=== PATIENT | female | born 1980 | race Hispanic/Latino ===

== ENCOUNTER 2022-03-29 19:53 | Inpatient (IN) | payer OTHER ==
[2022-03-29] MEDS ORDERED: PANTOPRAZOLE 40 MG INJ ONE (20:10)
[2022-03-29] MEDS ORDERED: ONDANSETRON 4 MG/2 ML VIAL ONE (20:10)
[2022-03-29] MEDS ORDERED: NA CHLORIDE 0.9% 1,000 ML ONE ×2 (20:11→21:35)
[2022-03-29] MEDS ORDERED: NA CHLORIDE 0.9% 250 ML ONE (20:11)
[2022-03-29 20:25] LABS: Hematocrit 39.4 % (36.0-45.0); Lymphocytes % 6.3 % (15.3-44.8); MPV 9.2 fL (7.6-11.3)
[2022-03-29 20:26] LABS: Protime INR 0.9
[2022-03-29 20:37] LABS: SARS-CoV-2 Antigen Rapid Res Negative (Negative)
[2022-03-29 20:46] LABS: ALT/SGPT 20 U/L (12-78); AST/SGOT 9 U/L (15-37); Albumin 3.7 g/dL (3.4-5.0); Alkaline Phosphatase 139 U/L (45-117); BUN Blood Urea Nitrogen 18 mg/dL (7-18); Bicarbonate 20 mmol/L (21-32); Bilirubin Total 0.5 mg/dL (0.2-1.0); Glomerular Filtration Rate 52 ml/min (=/>90); Potassium 3.7 mmol/L (3.5-5.1); Sodium Level 135 mmol/L (136-145); Troponin High Sensitivity < 3.0 pg/mL (<58.9)
[2022-03-29 20:47] LABS: Glucose Level 423 mg/dL (74-106)
--- NOTE | 2022-03-29 21:07 | ER ---
Nurse's Notes [facility] Name: Theresa Hoffmann Age: 41 yrs Sex: Female : 1980 Arrival Date: 03/29/2022 Time: 19:55 Bed 4 Private MD: Diagnosis: DKA, UPPER GI BLEED, GASTRITIS Presentation: 03/29 20:14 Chief complaint: EMS states: Pt called us for rasing heart rate and vomiting. Upon EMS jb4 arrival, pt was having bright red emesis which transitioned to a dark coffee ground like emesis. Pt has had a kidney transplant in [place], history of DKA, was given 4mg of zofran IM. Coronavirus screen: At this time, the client does not indicate any symptoms associated with coronavirus-19. Ebola Screen: No symptoms or risks identified at this time. Initial Sepsis Screen: Does the patient meet any 2 criteria? RR > 20 per min. No. Patient's initial sepsis screen is negative. Does the patient have a suspected source of infection? No. Patient's initial sepsis screen is negative. Risk Assessment: Do you want to hurt yourself or someone else? Patient reports no desire to harm self or others. Onset of symptoms was March 29, 2022. Transition of care: patient was not received from another setting of care. 20:14 Method Of Arrival: EMS: [facility] 20:14 Acuity: THANG 2 jb4 Historical: - Allergies: 20:21 Bactrim; jb4 - PMHx: 20:21 DM; jb4 - PSHx: 20:21 Kidney transplant; jb4 - Immunization history:: Adult Immunizations up to date. - Social history:: Smoking status: unknown. Screenin:06 Abuse screen: Denies threats or abuse. Denies injuries from another. Nutritional ha1 screening: No deficits noted. Tuberculosis screening: No symptoms or risk factors identified. 22:25 Fall Risk None identified. jb4 Assessment: 20:15 General: Appears in no apparent distress. uncomfortable, ill, Behavior is cooperative, jb4 anxious. Pain: Complains of pain in chest Pain does not radiate. Pain currently is 8 out of 10 on a pain scale. Quality of pain is described as burning. Neuro: Level of Consciousness is awake, alert, obeys commands, Oriented to person, place, time, situation. Cardiovascular: Patient's skin is warm and dry. Respiratory: Airway is patent Respiratory effort is even, unlabored, Respiratory pattern is symmetrical, tachypnea. GI: Abdomen is flat, non-distended, Pt is actively vomiting bright red blood, Coffee ground emesis. : No signs and/or symptoms were reported regarding the genitourinary system. EENT: No signs and/or symptoms were reported regarding the EENT system. Derm: Skin is intact, Skin is dry, Skin is pale, Skin temperature is warm. 21:04 Reassessment: Patient and/or family updated on plan of care and expected duration. Pain ha1 level reassessed. Patient is alert, oriented x 3, equal unlabored respirations, skin warm/dry/pink. pt. reports feeling nauseous . 21:52 Reassessment: Patient appears in no apparent distress at this time. Patient and/or jb4 family updated on plan of care and expected duration. Pain level reassessed. Patient is alert, oriented x 3, equal unlabored respirations, skin warm/dry/pink. 22:25 Reassessment: Patient appears in no apparent distress at this time. Patient and/or jb4 family updated on plan of care and expected duration. Pain level reassessed. Patient is alert, oriented x 3, equal unlabored respirations, skin warm/dry/pink. Patient states feeling better. Patient states symptoms have improved. Vital Signs: 20:14 BP 171 / 103; Pulse 80; Resp 26; Temp 97.8(O); Pulse Ox 100% on R/A; Weight 58.51 kg 4 (R); Height 5 ft. 1 in. (154.94 cm) (R); 20:30 BP 173 / 98; Pulse 84; Resp 20; Pulse Ox 98% on R/A; jb4 21:05 BP 171 / 105; Pulse 86; Resp 20; Pulse Ox 97% on R/A; ha1 21:30 BP 157 / 108; Pulse 88; Resp 20; Pulse Ox 98% on R/A; jb4 22:25 BP 155 / 109; Pulse 90; Resp 14; Pulse Ox 99% on R/A; jb4 20:14 Body Mass Index 24.37 (58.51 kg, 154.94 cm) [facility] ED Course: 19:55 Patient arrived in ED. mw2 19:55 Irene Perez MD is Attending Physician. sp3 20:08 Arnoldo Marie, KARLY is Primary Nurse. jb4 20:21 Triage completed. jb4 20:21 Arm band placed on right wrist. jb4 20:21 Patient has correct armband on for positive identification. Bed in low position. Call jb4 light in reach. Side rails up X 1. Client placed on continuous cardiac and pulse oximetry monitoring. NIBP monitoring applied. security monitor on. 20:46 XRAY Chest (1 view) In Process Unspecified. EDMS 21:06 Chris Pike MD is Hospitalizing Provider. sp3 21:32 CT Abd/Pelvis - Without Contrast In Process Unspecified. EDMS 22:41 No provider procedures requiring assistance completed. Patient admitted, IV remains in ha1 place. Administered Medications: 20:00 Drug: NS 0.9% 1000 ml Route: IV; Rate: 1 bolus; Site: right upper arm; kl 21:00 Follow up: Response: No adverse reaction; IV Status: Completed infusion; IV Intake: jb4 1000ml 20:05 Drug: ProTONIX (pantoprazole) 80 mg Route: IVP; Site: right upper arm; kl 20:30 Follow up: Response: No adverse reaction jb4 20:09 Drug: Zofran (Ondansetron) 4 mg Route: IVP; Site: right upper arm; kl 20:30 Follow up: Response: No adverse reaction; Marked relief of symptoms jb4 20:17 Drug: ProTONIX (pantoprazole) 8 mg/hr Route: IV; Rate: 25 ml/hr; Site: right upper arm; kl 22:44 Follow up: Response: No adverse reaction; IV Status: Infusion continued upon admission jb4 21:25 Drug: Phenergan (promethazine) 12.5 mg Route: IVP; Site: right upper arm; jb4 22:44 Follow up: Response: No adverse reaction; Marked relief of symptoms jb4 21:45 Drug: NS 0.9% 1000 ml Route: IV; Rate: 1 bolus; Site: right upper arm; jb4 22:43 Follow up: Response: No adverse reaction; IV Status: Completed infusion; IV Intake: jb4 1000ml 22:25 Drug: Insulin Drip - (Insulin Regular Human 100 units, NS 0.9% 100 ml) {Co-Signature: [email or web address] ha1 (Ashwini Mc RN).} Route: IV; Rate: calculated rate; Site: left upper arm; 22:44 Follow up: Response: No adverse reaction; IV Status: Infusion continued upon admission jb4 Medication: 22:25 VIS not applicable for this client. jb4 Point of Care Testing: Blood Glucose: 20:22 Blood Glucose: 438 mg/dL; jb4 Ranges: Intake: 21:00 IV: 1000ml; Total: 1000ml. jb4 22:43 IV: 1000ml; Total: 2000ml. jb4 Outcome: 21:06 Decision to Hospitalize by Provider. sp3 22:41 Admitted to ICU accompanied by nurse, via stretcher, room 3, Report called to hung Valdez RN 22:41 Condition: stable 22:41 Discharge instructions given to patient, family, Instructed on the need for admit, Demonstrated understanding of instructions. 22:44 Patient left the ED. ha1 Signatures: Dispatcher [employer] EDMS Piper Dorsey RN RN kl Bryson, James, RN RN jb4 Lisa Zamudio 2 Irene Perez MD MD sp3 Elizabeth Lazar RN RN kd3 Ashwini Mc RN RN ha1 Ashwini Mc RN ha1
--- NOTE | 2022-03-29 21:07 | EDPHYS ---
Physician Documentation [facility] Name: Theresa Hoffmann Age: 41 yrs Sex: Female : 1980 Arrival Date: 03/29/2022 Time: 19:55 Bed 4 Private MD: ED Physician Irene Perez HPI: 03/29 20:13 This 41 yrs old Female presents to ER via Unassigned with complaints of sp3 Nausea/Vomiting. 20:13 49-year-old female with a history of diabetes and kidney transplant presents to the ED sp3 via EMS for generalized weakness and emesis involving bright red blood as well as coffee-ground's which started today. Patient states that she has been progressively feeling weak over the last 3 to 4 days which culminated in today's emesis. She denies fever, lower abdominal pain, shortness of breath, rash, known sick contacts, URI symptoms, prior GI bleed, being on any blood thinners, recreational drug use, changes in any of her medications. Her transplant was in [place] several years ago. Denies diarrhea or melena or dark stools. No bleeding from any other sites including gums and nose.. Historical: - Allergies: 20:21 Bactrim; jb4 - PMHx: 20:21 DM; jb4 - PSHx: 20:21 Kidney transplant; jb4 - Immunization history:: Adult Immunizations up to date. - Social history:: Smoking status: unknown. ROS: 20:14 Constitutional: Negative for fever, chills, and weight loss, Eyes: Negative for injury, sp3 pain, redness, and discharge, ENT: Negative for injury, pain, and discharge, Neck: Negative for injury, pain, and swelling, Respiratory: Negative for shortness of breath, cough, wheezing, and pleuritic chest pain, Back: Negative for injury and pain, Skin: Negative for injury, rash, and discoloration, Neuro: Negative for headache, weakness, numbness, tingling, and seizure, Psych: Negative for depression, anxiety, suicide ideation, homicidal ideation, and hallucinations, Allergy/Immunology: Negative for hives, rash, and allergies, Endocrine: Negative for neck swelling, polydipsia, polyuria, polyphagia, and marked weight changes. 20:14 All other systems are negative. Exam: 20:15 Head/Face: Normocephalic, atraumatic. Eyes: Pupils equal round and reactive to light, sp3 extra-ocular motions intact. Lids and lashes normal. Conjunctiva and sclera are non-icteric and not injected. Cornea within normal limits. Periorbital areas with no swelling, redness, or edema. ENT: Nares patent. No nasal discharge, no septal abnormalities noted. External auditory canals are clear. Oropharynx with no redness, swelling, or masses, exudates, or evidence of obstruction, uvula midline. Mucous membranes moist. Neck: Trachea midline, no thyromegaly or masses palpated, and no cervical lymphadenopathy. Supple, full range of motion without nuchal rigidity, or vertebral point tenderness. No Meningismus. Chest/axilla: Normal chest wall appearance and motion. Nontender with no deformity. No lesions are appreciated. Cardiovascular: Regular rate and rhythm with a normal S1 and S2. No gallops, murmurs, or rubs. Normal PMI, no JVD. No pulse deficits. Respiratory: Lungs have equal breath sounds bilaterally, clear to auscultation and percussion. No rales, rhonchi or wheezes noted. No increased work of breathing, no retractions or nasal flaring. Back: No spinal tenderness. No costovertebral tenderness. Full range of motion. MS/ Extremity: Pulses equal, no cyanosis. Neurovascular intact. Full, normal range of motion. Neuro: Awake and alert, GCS 15, oriented to person, place, time, and situation. Cranial nerves II-XII grossly intact. Motor strength 5/5 in all extremities. Sensory grossly intact. Cerebellar exam normal. Normal gait. Psych: Awake, alert, with orientation to person, place and time. Behavior, mood, and affect are within normal limits. 20:15 Constitutional: The patient appears alert, frail, obviously ill, unkempt. 20:15 ECG was reviewed by the Attending Physician. EKG demonstrates normal sinus rhythm at 87 bpm with normal intervals, mildly leftward axis, normal QRS except for poor R wave progression V1 through V3, nonspecific diffuse ST/T changes without evidence of acute ischemia or ST elevation UT. 20:15 Abdomen/GI: He has tenderness to palpation epigastrically without peritoneal signs.. 20:15 Skin: Appearance: Color: pale. Vital Signs: 20:14 BP 171 / 103; Pulse 80; Resp 26; Temp 97.8(O); Pulse Ox 100% on R/A; Weight 58.51 kg jb4 (R); Height 5 ft. 1 in. (154.94 cm) (R); 20:30 BP 173 / 98; Pulse 84; Resp 20; Pulse Ox 98% on R/A; jb4 21:05 BP 171 / 105; Pulse 86; Resp 20; Pulse Ox 97% on R/A; ha1 21:30 BP 157 / 108; Pulse 88; Resp 20; Pulse Ox 98% on R/A; jb4 22:25 BP 155 / 109; Pulse 90; Resp 14; Pulse Ox 99% on R/A; jb4 20:14 Body Mass Index 24.37 (58.51 kg, 154.94 cm) jb4 Procedures: 20:05 Peripheral line: by aseptic technique a peripheral line was placed in the right Upper la1 arm 18G 10cm Midline inserted VIA dynamic US guidance. verified with visualization, blood return, flushes easily. . MDM: 19:55 Patient medically screened. sp3 20:19 Data reviewed: vital signs, nurses notes. ED course: 41-year-old female diabetic status sp3 post kidney transplant here with dehydration, likely upper GI bleed, and possible DKA. Will obtain laboratory values, CT scan of the abdomen and pelvis, chest x-ray, EKG and we have started Protonix IV drip plus bolus and Zofran. Type and screen drawn in case patient needs transfusion. Vital signs are normal however patient's condition is extremely guarded. Ultimate disposition and place of admission to be determined after work-up is complete and patient is fully assessed. We do have GI coverage on-call today so ICU admission here is a possibility.. 03/29 19:58 Order name: CBC with Diff; Complete Time: 20:29 3 03/29 19:58 Order name: Troponin HS; Complete Time: 21:03 3 03/29 19:58 Order name: CMP; Complete Time: 21:03 3 03/29 19:58 Order name: PT-INR; Complete Time: 20:29 3 03/29 19:58 Order name: Type And Screen; Complete Time: 21:32 3 03/29 19:58 Order name: Lactate; Complete Time: 21:03 3 03/29 19:58 Order name: XRAY Chest (1 view); Complete Time: 21:49 sp3 03/29 19:58 Order name: Test, Serum; Complete Time: 20:39 sp3 03/29 20:07 Order name: SARS RAPID; Complete Time: 20:39 la1 03/29 20:10 Order name: CT Abd/Pelvis - Without Contrast; Complete Time: 21:49 sp3 03/29 20:18 Order name: Glucose, Ancillary Testing; Complete Time: 20:29 EDMS 03/29 22:19 Order name: Glucose, Ancillary Testing; Complete Time: 22:49 EDMS 03/29 19:58 Order name: EKG; Complete Time: 19:59 sp3 03/29 19:58 Order name: Cardiac monitoring; Complete Time: 20:30 sp3 03/29 19:58 Order name: EKG - Nurse/Tech; Complete Time: 20:30 sp3 03/29 19:58 Order name: IV Saline Lock; Complete Time: 20:30 sp3 03/29 19:58 Order name: Labs collected and sent; Complete Time: 20:30 sp3 03/29 19:58 Order name: O2 Per Protocol; Complete Time: 20:30 sp3 03/29 19:58 Order name: O2 Sat Monitoring; Complete Time: 20:30 sp3 03/29 19:58 Order name: NPO; Complete Time: 20:30 sp3 Administered Medications: 20:00 Drug: NS 0.9% 1000 ml Route: IV; Rate: 1 bolus; Site: right upper arm; kl 21:00 Follow up: Response: No adverse reaction; IV Status: Completed infusion; IV Intake: jb4 1000ml 20:05 Drug: ProTONIX (pantoprazole) 80 mg Route: IVP; Site: right upper arm; kl 20:30 Follow up: Response: No adverse reaction jb4 20:09 Drug: Zofran (Ondansetron) 4 mg Route: IVP; Site: right upper arm; kl 20:30 Follow up: Response: No adverse reaction; Marked relief of symptoms jb4 20:17 Drug: ProTONIX (pantoprazole) 8 mg/hr Route: IV; Rate: 25 ml/hr; Site: right upper arm; kl 22:44 Follow up: Response: No adverse reaction; IV Status: Infusion continued upon admission jb4 21:25 Drug: Phenergan (promethazine) 12.5 mg Route: IVP; Site: right upper arm; jb4 22:44 Follow up: Response: No adverse reaction; Marked relief of symptoms jb4 21:45 Drug: NS 0.9% 1000 ml Route: IV; Rate: 1 bolus; Site: right upper arm; jb4 22:43 Follow up: Response: No adverse reaction; IV Status: Completed infusion; IV Intake: jb4 1000ml 22:25 Drug: Insulin Drip - (Insulin Regular Human 100 units, NS 0.9% 100 ml) {Co-Signature: [email or web address] ha1 (Ashwini Mc RN).} Route: IV; Rate: calculated rate; Site: left upper arm; 22:44 Follow up: Response: No adverse reaction; IV Status: Infusion continued upon admission jb4 Point of Care Testing: Blood Glucose: 20:22 Blood Glucose: 438 mg/dL; jb4 Ranges: Critical Glucose Levels:Adult <50 mg/dl or >400 mg/dl <40 mg/dl or >180 mg/dl Disposition Summary: 03/29/22 21:06 Hospitalization Ordered Hospitalization Status: Inpatient Admission sp3 Provider: Chris Pike sp3 Location: Intensive Care Unit sp3 Condition: Critical sp3 Problem: an acute exacerbation sp3 Symptoms: have worsened sp3 Bed/Room Type: Standard sp3 Room Assignment: 3-(03/29/22 22:00) Diagnosis - DKA, UPPER GI BLEED, GASTRITIS sp3 Forms: - Medication Reconciliation Form sp3 - SBAR form sp3 Critical care time excluding procedures: 21:04 Critical care time: Bedside Care: 15 minutes, Consultation: 15 minutes. Total time: 30 sp3 minutes Signatures: Dispatcher [employer] Piper Cunningham RN RN Troy Conrad, PAINTER AND PAPERHANGER APPRENTICE-C PAINTER AND PAPERHANGER APPRENTICE-Cla1 Arnoldo Marie RN RN jb4 Irene Perez MD MD sp3 Elizabeth Lazar RN RN kd3 Ashwini Mc RN ha1 Corrections: (The following items were deleted from the chart) 22:00 21:06 sp3 anderson
[2022-03-29] MEDS ORDERED: PROMETHAZINE INJ 25 MG/ML AMP ONE (21:19)
[2022-03-29] MEDS ORDERED: INSULIN -REGULAR HUMAN 50 UNIT/0.5 ML ML ONE (21:34)
[2022-03-29] MEDS ORDERED: NA CHLORIDE 0.9% 100 ML ONE (21:35)
--- NOTE | 2022-03-29 21:41 | RAD REPORT ---
EXAM DESCRIPTION: CT - Abdomen Pelvis Wo Contrast - 03/29/2022 9:30 pm CLINICAL HISTORY: Abdominal pain COMPARISON: 2010 TECHNIQUE: Computed axial tomography of the abdomen and pelvis was obtained. IV and oral contrast we re not requested. All CT scans are performed using dose optimization technique as appropriate and may include automated exposure control or mA/KV adjustment according to patient size. FINDINGS: The evaluation of solid organs, vessels and bowel is limited secondary to the lack of con trast administration. Small to moderate hiatal hernia Post surgical changes involve small bowel. Small jamul kidneys. Transplant kidney left pelvis. No hydronephrosis. Liver, spleen, pancreas and adrenals grossly normal. No evidence diverticulitis. No adnexal mass IMPRESSION: No acute abnormality is displayed.
--- NOTE | 2022-03-29 21:41 | RAD REPORT ---
EXAM DESCRIPTION: [place] Single View03/29/2022 8:44 pm CLINICAL HISTORY: Chest pain COMPARISON: 2014 FINDINGS: The lungs appear clear of acute infiltrate. The heart is normal size IMPRESSION: No acute abnormalities displayed
--- NOTE | 2022-03-29 21:48 | P.HP ---
Certification for Inpatient Patient admitted to: Inpatient With expected LOS: >2 Midnights Patient will require the following post-hospital care: None Practitioner: I am a practitioner with admitting privileges, knowledge of patient current condition, hospital course, and medical plan of care. Services: Services provided to patient in accordance with Admission requirements found in Title 42 Section 412.3 of the Code of Federal Regulations <Troy Lisa - Last Filed: 03/29/22 21:49> Patient History Date of Service: 03/29/22 Reason for admission: DKA, hematemesis History of Present Illness: 41-year-old female with history of diabetes most type IIinsulin-dependent, history of renal transplant in 2018 in [facility] presented emerged department with nausea and vomiting. She reports feeling unwell throughout the day today. She vomited a few times with EMS and upon arrival to the emergency department. Had some coffee-ground emesis present in her vomitus. She evaluated in the emergency department her labs were significant for leukocytosis with white blood cell count 15.2 sodium 135 chloride 96 CO2 20 anion gap 20.7 creatinine 1.33 EGFR 52 glucose 123 lactic acid 5.1. Patient denies any fever, chills, dysuria, cough or other signs of infection. She was started on Protonix drip on arrival to emergency department given her coffee-ground emesis, also started on insulin drip given her DKA. She will be given to the ICU for further evaluation and monitoring of DKA, hematemesis. Patient reports her was performed in 2018 in the [facility] with recent complications, she reports she has been compliant with her antirejection medications although she cannot really recall the names or doses. We will admit to the ICU for further evaluation and management. - Past Medical/Surgical History Diabetic: Yes -: DMII insulin dependent -: HTN -: Hypothyroidism -: Renal transplant 2018 -: Renal transplant 2018-[facility] Psychosocial/ Personal History: Lives at home, alone. Unemployed. - Family History Mother -: Diabetes - Social History Smoking Status: Never smoker Alcohol use: Yes CD- Drugs: No Caffeine use: Yes Place of Residence: Home <Troy Lisa - Last Filed: 03/29/22 21:49> Date of Service: 03/30/22 <Chris Pike - Last Filed: 03/30/22 23:01> Allergies meperidine HCl [From Demerol] Allergy (Intermediate, Verified 01/21/14 23:42) Hives sulfamethoxazole [From Bactrim] Allergy (Intermediate, Verified 01/21/14 23:42) Hives trimethoprim [From Bactrim] Allergy (Intermediate, Verified 01/21/14 23:42) Hives hydrocodone Adverse Reaction (Verified 01/21/14 23:42) Nausea/Vomiting metoclopramide [From Reglan] Adverse Reaction (Verified 03/30/22 09:49) tardive Home Medications: Insulin Aspart [Novolog*] See Protocol SQ AC 01/21/14 Insulin Glargine Human [Lantus*] 20 units SQ DAILY 01/21/14 Acetam/Caff/Butal [Fioricet*] 1 tab PO Q12H PRN #30 tab 01/23/14 Atorvastatin Calcium 10 mg PO DAILY 03/30/22 Carisoprodol [Soma] 700 mg PO BID PRN 03/30/22 Cetirizine HCl [Zyrtec] 10 mg PO DAILY PRN 03/30/22 Gabapentin 100 mg PO BID 03/30/22 Levothyroxine [Synthroid] 125 mcg PO [id number] 03/30/22 Mirtazapine [Remeron] 15 mg PO BEDTIME PRN 03/30/22 Mycophenolate Sodium [Mycophenolic Acid] 360 mg PO BID 03/30/22 Nitrofurantoin Monohyd/M-Cryst [Nitrofurantoin Yell-Mcr 100 mg] 100 mg PO BID 03/30/22 Pantoprazole Sodium [Protonix] 40 mg PO DAILY 03/30/22 Prednisone [Wili] 5 mg PO DAILY 03/30/22 Sumatriptan [Imitrex] 50 mg PO BID PRN 03/30/22 Tacrolimus 1 mg PO BEDTIME 03/30/22 Tacrolimus 2 mg PO BREAKFAST 03/30/22 levETIRAcetam [Keppra Tab] 500 mg PO BID 03/30/22 Review of Systems 10-point ROS is otherwise unremarkable General: Malaise Gastrointestinal: Nausea, Vomiting <Troy Lisa Mohit - Last Filed: 03/29/22 21:49> Physical Examination - Physical Exam General: Alert, In no apparent distress, Oriented x3 HEENT: Atraumatic, PERRLA, Mucous membr. moist/pink, EOMI, Sclerae nonicteric Neck: Supple, 2+ carotid pulse no bruit, No LAD, Without JVD or thyroid abnormality Respiratory: Clear to auscultation bilaterally, Normal air movement Cardiovascular: Regular rate/rhythm, Normal S1 S2 Capillary refill: <2 Seconds Gastrointestinal: Normal bowel sounds, No tenderness Musculoskeletal: No tenderness Integumentary: No rashes Neurological: Normal speech, Normal strength at 5/5 x4 extr, Normal tone, Normal affect - Studies Laboratory Data (last 24 hrs) 03/29/22 20:00: PT 9.9, INR 0.90 03/29/22 20:00: Sodium 135 L, Potassium 3.7, BUN 18, Creatinine 1.33 H, Glucose 423 H*, Total Bilirubin 0.5, AST 9 L, ALT 20, Alkaline Phosphatase 139 H 03/29/22 20:00: WBC 15.20 H, Hgb 12.3, Hct 39.4, Plt Count 329 <Troy Lias - Last Filed: 03/29/22 21:49> Assessment and Plan - Plan Assessment: Diabetes mellitus type IIinsulin-dependent with DKA Hematemesis History of renal transplant 2018 Plan: Diabetes mellitus type IIinsulin-dependent with DKA: N.p.o., aggressive IV fluids, hourly Accu-Chek, every 4 hour BMP, Insulin drip. Pt also with mild amount of hematemesis, will keep NPO for now. Hematemesis: Pt reports hx of gastric ulcers, keep NPO, repeat H/H tonight, continue protonix drip, GI to be consulted. History of renal transplant 2018: Continue IVF, CT without contrast without hydronephrosis. Nephrology to be consulted. DVT PPX: SCD Code status:Full Discharge Plan: Home Plan to discharge in: 48 Hours - Advance Directives Does patient have a Living Will: No Does patient have a Durable POA for Healthcare: No - Code Status/Comfort Care Code Status Assessed: Yes (Full code) Critical Care: No Time Spent Managing Pts Care (In Minutes): 70 <Troy Lisa - Last Filed: 03/29/22 21:49> Physician Review: Patient Assessed, Agree with Above Assessment and Plan <Chris Pike - Last Filed: 03/30/22 23:01>
[2022-03-29] MEDS ORDERED: PANTOPRAZOLE INJ 80 MG in NA CHLORIDE 0.9% 250 ML IV SCH (23:18)
[2022-03-29] MEDS ORDERED: NACHLORIDE 0.45% 1,000 ML with POTASSIUM CL 20 MEQ IV SCH ×2 (23:18)
[2022-03-29] MEDS ORDERED: D5.45NS W/KCL 20MEQ 1,000 ML IV SCH (23:18)
[2022-03-29] MEDS ORDERED: INSULIN -REGULAR HUMAN 100 UNIT in NA CHLORIDE 0.9% 100 ML IV SCH (23:18)
[2022-03-29] MEDS: POTASSIUM CHLORIDE-0.45% NACL 20 MEQ/1,000 ML BAG IV SCH (23:30)
[2022-03-29 23:46] LABS: Hematocrit 35.1 % (36.0-45.0)
[2022-03-29 23:51] VITALS: O2SAT 100; BMI 24.0
[2022-03-30] MEDS: ONDANSETRON 4 MG/2 ML VIAL IV PRN ×3 (01:19→13:26)
[2022-03-30 01:38] LABS: Potassium 3.7 mmol/L (3.5-5.1)
[2022-03-30] MEDS: PROMETHAZINE INJ 25 MG/ML AMP IV PRN ×5 (02:36→20:30)
[2022-03-30] MEDS ORDERED: D5.45NS W/KCL 20MEQ 20 MEQ/1,000 ML BAG IV SCH (05:00)
[2022-03-30 05:48] LABS: Hematocrit 34.2 % (36.0-45.0); Lymphocytes % 9.6 % (15.3-44.8); MCV 80.3 fL (80-100); MPV 8.6 fL (7.6-11.3); RBC Red Blood Cell Count 4.26 M/uL (3.86-4.86)
[2022-03-30] MEDS: POTASSIUM CHLORIDE-0.45% NACL 20 MEQ/1,000 ML BAG IV SCH (06:10)
[2022-03-30 06:13] LABS: BUN Blood Urea Nitrogen 10 mg/dL (7-18); Bicarbonate 24 mmol/L (21-32); Glomerular Filtration Rate 86 ml/min (=/>90); Glucose Level 230 mg/dL (74-106); HDL Cholesterol 89 mg/dL (40-60); LDL Cholesterol, Calculated 80 mg/dL (<130); Magnesium 1.5 mg/dL (1.8-2.4); Potassium 3.8 mmol/L (3.5-5.1); Sodium Level 137 mmol/L (136-145)
[2022-03-30] MEDS: PANTOPRAZOLE INJ 80 MG in NA CHLORIDE 0.9% 250 ML IV SCH ×2 (07:24→17:20)
--- NOTE | 2022-03-30 08:28 | EKG ---
Test Date: 2022-03-29 Test Time: 20:14:01 Glass Loading Equipment Tender: MARIA TERESA MEASUREMENT RESULTS: Intervals: Rate: 87 AL: 146 QRSD: 76 QT: 382 QTc: 459 [place]: P: 54 AL: 146 QRS: 2 T: 52 INTERPRETIVE STATEMENTS: Normal sinus rhythm Nonspecific T wave abnormality Abnormal ECG Compared to ECG 08/18/2014 07:35:38 T-wave abnormality now present Electronically Signed On 03-30-22 08:26:34 CDT by Rick Hayes
[2022-03-30 09:35] LABS: Potassium 3.5 mmol/L (3.5-5.1)
[2022-03-30] MEDS ORDERED: METOCLOPRAMIDE 10 MG/2mL INJ IV SCH (10:00)
--- NOTE | 2022-03-30 11:10 | P.CNS ---
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 She reports CKD V/ESRD prior to renal transplanation but has done well with renal allograft and reports continud follow up with transplant team and compliance with anti rejection medication. She presented yesterday to the ER with nausea and vomiting. She reports feeling unwell throughout the day today. She vomited a few times with EMS and upon arrival to the emergency department. There are some reports of possible coffee ground emesis, GI has been consulted. She was also treated for DKA on admission and remains on IVF and low rate insulin drip. Allergies meperidine HCl [From Demerol] Allergy (Intermediate, Verified 01/21/14 23:42) Hives sulfamethoxazole [From Bactrim] Allergy (Intermediate, Verified 01/21/14 23:42) Hives trimethoprim [From Bactrim] Allergy (Intermediate, Verified 01/21/14 23:42) Hives hydrocodone Adverse Reaction (Verified 01/21/14 23:42) Nausea/Vomiting metoclopramide [From Reglan] Adverse Reaction (Verified 03/30/22 09:49) tardive Home Medications: Buspirone HCl [Buspar] 15 mg PO DAILY 01/21/14 Divalproex Sodium 500 mg PO BID 01/21/14 Insulin Aspart [Novolog*] 6 units SQ AC 01/21/14 Insulin Glargine Human [Lantus*] 16 units SQ DAILY 01/21/14 Levothyroxine Sodium 150 mcg PO DAILY 01/21/14 Mv-Mn/Iron/FA/Herbal/Digestive [ One Tablet] 1 tab PO DAILY 01/21/14 [place]-3 Fatty Acids/Fish Oil [Fish Oil 1,000 mg Softgel] 1,000 mg PO DAILY 01/21/14 Acetam/Caff/Butal [Fioricet*] 1 tab PO Q12H PRN #30 tab 01/23/14 Losartan Potassium [Cozaar*] 50 mg PO DAILY #30 tablet 01/23/14 - Past Medical/Surgical History Diabetic: Yes -: DMII insulin dependent -: HTN -: Hypothyroidism -: Renal transplant 2018 -: Renal transplant 2018-[facility] Psychosocial/ Personal History: Lives at home, alone. Unemployed. - Family History Mother Medical History: Diabetes - Social History Alcohol use: No CD- Drugs: No Caffeine use: No Place of Residence: Home Review of Systems General: Weakness, Malaise Eyes: Unremarkable ENT: Unremarkable Respiratory: Unremarkable Cardiovascular: Unremarkable Gastrointestinal: Nausea, Vomiting, Abdominal Pain Genitourinary: Unremarkable Musculoskeletal: Unremarkable Integumentary: Unremarkable Neurological: Unremarkable Physical Examination Temp Pulse Resp BP Pulse Ox 98.6 F 90 17 172/96 H 17 L 03/30/22 08:00 03/30/22 10:00 03/30/22 06:00 03/30/22 10:00 03/29/22 23:12 General: Alert, In no apparent distress, Oriented x3 HEENT: Atraumatic, Normocephalic, EOMI Neck: Supple Respiratory: Clear to auscultation bilaterally, Normal air movement Cardiovascular: No edema, Normal pulses, Regular rate/rhythm, Normal S1 S2 Gastrointestinal: Soft and benign, Non-distended Musculoskeletal: No swelling, No contractures Integumentary: No rashes, No breakdown Neurological: Normal speech, Normal tone, Normal affect Laboratory Data (last 24 hrs) 03/29/22 20:00: PT 9.9, INR 0.90 03/29/22 20:00: Sodium 135 L, Potassium 3.7, BUN 18, Creatinine 1.33 H, Glucose 423 H*, Total Bilirubin 0.5, AST 9 L, ALT 20, Alkaline Phosphatase 139 H 03/29/22 20:00: WBC 15.20 H, Hgb 12.3, Hct 39.4, Plt Count 329 Conclusions/Impression: 1. Stage 1 FELA on admission 2. S/p kidney transplant status 3. Nausea, vomiting unspecified 4. DKA on admission 5. Volume depletion unspecified 6. Accelerated HTN -Cr levels have promptly improved, normalized with IVF hydration. No reports of transplant CKD or allograft issues, no reports of rejection, CT scan imaging showed no parenchymal issues, [place] kidneys are small. -Will resume anti rejection regimen with tacrolimus, myfortic and prednisone. Medications are not on formulary so will have pt bring in home meds. -DKA management per primary team, no active N/V and BP now accelerated so will lower rate of maintenance IVF to 50 cc/hr. -Will check UA with microscopy to eval for any infection, active urinary sediment or proteinuria. Thank you for the referral, Joselito Lassiter MD, [facility]
[2022-03-30] MEDS: HYDRALAZINE HCL 20 MG/ML VIAL IV PRN (13:15)
[2022-03-30 13:24] LABS: Potassium 3.4 mmol/L (3.5-5.1)
[2022-03-30] MEDS: ERYTHROMYCIN BASE 250 MG TAB PO SCH (17:16)
[2022-03-30] MEDS ORDERED: MAGIC MOUTHWASH 180 ML BTL PO PRN (17:25)
--- NOTE | 2022-03-30 18:04 | P.PN ---
Subjective Date of Service: 03/30/22 Chief Complaint: DKA, hematemesis Subjective: Improving Overnight, her anion gap closed and her blood glucose levels have improved. She continues to report significant nausea and vomiting, with specks of "coffee- grounds." Review of Systems 10-point ROS is otherwise unremarkable Gastrointestinal: Nausea, Vomiting, Other (coffee-ground emesis) Physical Examination - Vital Signs Temperature: 98.1 F Blood Pressure: 157/88 Pulse: 104 Respirations: 23 Pulse Ox (%): 17 - Physical Exam General: Alert, In no apparent distress, Oriented x3 HEENT: Atraumatic, PERRLA, Mucous membr. moist/pink, EOMI, Sclerae nonicteric Neck: Supple, JVD not distended Respiratory: Clear to auscultation bilaterally, Normal air movement Cardiovascular: No edema, Regular rate/rhythm, Normal S1 S2, No gallops, No rubs, No murmurs Gastrointestinal: Normal bowel sounds, Soft and benign, Non-distended, No tenderness, No rebound, No guarding Musculoskeletal: No clubbing Integumentary: No rashes Neurological: Normal speech, Cranial nerves 3-12 intact, Normal affect - Studies Laboratory Data (last 24 hrs) 03/29/22 20:00: PT 9.9, INR 0.90 03/29/22 20:00: Sodium 135 L, Potassium 3.7, BUN 18, Creatinine 1.33 H, Glucose 423 H*, Total Bilirubin 0.5, AST 9 L, ALT 20, Alkaline Phosphatase 139 H 03/29/22 20:00: WBC 15.20 H, Hgb 12.3, Hct 39.4, Plt Count 329 Assessment And Plan - Plan # Reported Acute Upper Gastrointestinal Bleed (Coffee-Ground Emesis) Differential diagnoses include, but are not limited to, esophageal varices, Teresa-Urena tear/Boerhaave syndrome, arteriovenous malformations, Avelino lesions, Dieulafoy's lesions, peptic ulcer disease, gastritis/esophagitis, and malignancy. - Consulted Gastroenterology and spoke with Dr. Castellanos - recommendations appreciated - Type & Screen - q6hr H&H - Transfuse for Hgb < 7.0 - 2 large bore IVs - Continue pantoprazole drip - IV fluids with D5W-1/2 NS at 50 mL/hr - NPO # Acute Diabetic Ketoacidosis in Type II Diabetes Mellitus (resolved) - Hgb A1c = 11.3 % - Although anion gap has closed, will maintain on insulin drip + low-dose D5W- 1/2 NS while NPO - Once tolerating PO, will switch to subcutaneous insulin # History of Diabetic Nephropathy s/p Renal Transplant (2018) - Consulted Nephrology and spoke with Dr. Lassiter - recommendations appreciated - Continue home tacrolimus, mycophenolic acid, and prednisone Chris Pike M.D. Discharge Plan: Home Plan to discharge in: Greater than 2 days
[2022-03-30 18:15] LABS: Potassium 3.7 mmol/L (3.5-5.1)
[2022-03-30 19:08] LABS: Specific Gravity 1.018 (1.005-1.030); Urine Bacteria 20-50 /HPF (<20); Urine Bilirubin NEGATIVE (Negative); Urine Blood 3+ (OVER) (Negative); Urine Clarity Turbid (Clear); Urine Color Brown (Yellow); Urine Glucose 4+ (Over) (Negative); Urine Mucus Slight /HPF (None Seen); Urine Protein 1+ (Negative); Urine RBC >50 /HPF (None Seen); Urine Urobilinogen Normal (Normal); Urine pH 5.5 (5.0-7.0)
[2022-03-30] MEDS: MYFORTIC 360 MG PO SCH (21:00)
[2022-03-30] MEDS: predniSONE 5 MG TAB PO SCH (21:00)
[2022-03-30] MEDS: TACROLIMUS 1 MG PO SCH (21:00)
[2022-03-30 21:40] LABS: Potassium 3.7 mmol/L (3.5-5.1)
[2022-03-30] MEDS ORDERED: LORazepam 2 MG/ML VIAL IV ONE (22:20)
[2022-03-31] MEDS: PROMETHAZINE INJ 25 MG/ML AMP IV PRN ×3 (01:17→15:06)
[2022-03-31] MEDS: PANTOPRAZOLE INJ 80 MG in NA CHLORIDE 0.9% 250 ML IV SCH (03:06)
[2022-03-31] MEDS: D5.45NS W/KCL 20MEQ 20 MEQ/1,000 ML BAG IV SCH ×2 (03:07→07:00)
[2022-03-31] MEDS: ONDANSETRON 4 MG/2 ML VIAL IV PRN ×2 (03:26→10:33)
[2022-03-31 06:23] LABS: Absolute Lymphocytes (CBC) 1.2 K/uL (0.7-4.9); Hematocrit 32.4 % (36.0-45.0); Lymphocytes % 14.3 % (15.3-44.8); MCV 80.2 fL (80-100); MPV 8.2 fL (7.6-11.3); RBC Red Blood Cell Count 4.04 M/uL (3.86-4.86)
[2022-03-31] MEDS: TACROLIMUS 1 MG PO SCH (08:15)
[2022-03-31] MEDS: MYFORTIC 360 MG PO SCH (08:15)
[2022-03-31] MEDS: ERYTHROMYCIN BASE 250 MG TAB PO SCH ×3 (08:15→16:27)
[2022-03-31] MEDS: predniSONE 5 MG TAB PO SCH (08:16)
[2022-03-31] MEDS: HYDRALAZINE HCL 20 MG/ML VIAL IV PRN (08:46)
[2022-03-31] MEDS ORDERED: LOSARTAN POTASSIUM 50 MG TABLET PO SCH (09:30)
[2022-03-31] MEDS ORDERED: HYDRALAZINE HCL 20 MG/ML VIAL IV PRN (09:37)
[2022-03-31] MEDS ORDERED: D5W 1,000 ML with POTASSIUM CL 20 MEQ IV SCH ×2 (10:00)
--- NOTE | 2022-03-31 11:13 | P.PN ---
Subjective Date of Service: 03/31/22 Chief Complaint: DKA, hematemesis No acute events overnight. She reports that she has had persistent nausea, but her vomiting has improved. She denies any recurrent hematemesis. This morning, she endorses cannabinoid use. Review of Systems 10-point ROS is otherwise unremarkable Gastrointestinal: Nausea, Vomiting (+/- hematemesis) Physical Examination - Vital Signs Temperature: 98.1 F Blood Pressure: 126/98 Pulse: 112 Respirations: 23 Pulse Ox (%): 17 Assessment And Plan - Plan - Physical Exam General: Alert, In no apparent distress, Oriented x3 HEENT: Atraumatic, PERRLA, Mucous membr. 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 - Consulted Gastroenterology and spoke with Dr. Castellanos - recommendations appreciated - Urine test = negative - Type & Screen - q6hr H&H - Transfuse for Hgb < 7.0 - 2 large bore IVs - Switch pantoprazole drip to IV BID for now - Start clear liquid diet - advance as tolerated - Discontinue IV fluids for now - THC cessation counseling provided # Acute Diabetic Ketoacidosis in Type I Diabetes Mellitus (resolved) - Hgb A1c = 11.3 % - Switch from IV insulin drip to SQ today at half dose (10 units) - takes 20 units glargine at home # History of Diabetic Nephropathy s/p Renal Transplant (2018) - Consulted Nephrology and spoke with Dr. Lassiter - recommendations appreciated - Continue home tacrolimus, mycophenolic acid, and prednisone - Down-grade to Med/Surg today Chris Pike M.D.
[2022-03-31] MEDS ORDERED: SODIUM CHLORIDE 0.9% 10ML INJ IV PRN (11:19)
[2022-03-31] MEDS ORDERED: D50W 25 GM/50 ML SYRINGE IV PRN (11:25)
[2022-03-31] MEDS ORDERED: GLUCAGON 1 MG/VIAL IM PRN (11:25)
[2022-03-31] MEDS ORDERED: DEXTROSE 10%-WATER 125 ML IV PRN (11:34)
--- NOTE | 2022-03-31 11:41 | P.PN ---
Nephrology note: (S) Pt remains in the ICU, has continued to have some N/V but did take her PO anti rejection meds earlier this morning. BP remains elevated, received IV hydralazine. (O) Vitals reviewed in the EMR General: Alert, In no apparent distress, Oriented x3 HEENT: Atraumatic, Normocephalic, EOMI Neck: Supple Respiratory: Clear to auscultation bilaterally, Normal air movement Cardiovascular: No edema, Normal pulses, Regular rate/rhythm, Normal S1 S2 Gastrointestinal: Soft and benign, Non-distended Musculoskeletal: No swelling, No contractures Integumentary: No rashes, No breakdown Neurological: Normal speech, Normal tone, Normal affect Laboratory Data (last 24 hrs) Reviewed in the EMR Conclusions/Impression: 1. Stage 1 FELA on admission resolved 2. S/p kidney transplant status 3. Nausea, vomiting unspecified 4. DKA on admission -resolved 5. Volume depletion unspecified -resolved 6. Accelerated HTN 7. Microscopic hematuria unspecified -Cr levels have promptly improved, normalized with IVF hydration. No reports of transplant CKD or allograft issues, no reports of rejection, CT scan imaging showed no parenchymal issues, [place] kidneys are small. -Did resume anti rejection regimen with tacrolimus, myfortic and prednisone. Medications are not on formulary so pt taking home meds. -DKA resolved, primary team to start basal insulin as appropriate, will d/c IVF. -Abnormal findings in urine unspecified including microscopic hematuria, f/u UCx. Repeat in a few weeks to re-assess. No renal or lesions noted on non contrast CT imaging. Check UACR. Joselito Lassiter MD, [facility]
[2022-03-31] MEDS: SUCRALFATE 1GM/10ML UCUP PO SCH ×2 (12:01→16:27)
[2022-03-31] MEDS: INSULIN -REGULAR HUMAN 50 UNIT/0.5 ML ML SQ SCH ×2 (12:01→16:27)
[2022-03-31 12:10] LABS: Magnesium 1.9 mg/dL (1.8-2.4); Potassium 3.7 mmol/L (3.5-5.1)
[2022-03-31] MEDS ORDERED: INSULIN GLARGINE 100 UNIT/ML SQ SCH (13:00)
[2022-03-31 20:47] VITALS: BP 156/92; TEMP 97.5
[2022-03-31] MEDS ORDERED: PANTOPRAZOLE 40 MG INJ IVP SCH (21:00)
--- NOTE | 2022-03-31 21:27 | P.DS ---
Admission Date: 03/29/22 Discharge Date: 03/31/22 Disposition: AMA-LEFT AGAINST MEDICAL ADVIC Discharge Condition: FAIR Reason for Admission: DKA, hematemesis Consultations: Nephrology- Dr. Lassiter GI- Dr. 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 Small to moderate hiatal hernia Post surgical changes involve small bowel. Small [place] kidneys. Transplant kidney left pelvis. No hydronephrosis. Liver, spleen, pancreas and adrenals grossly normal. No evidence diverticulitis. No adnexal mass IMPRESSION: No acute abnormality is displayed. CXR 03/29/22 FINDINGS: The lungs appear clear of acute infiltrate. The heart is normal size IMPRESSION: No acute abnormalities displayed Brief History of Present Illness: 41-year-old female with history of diabetes most type IIinsulin-dependent, history of renal transplant in 2018 in [facility] presented emerged department with nausea and vomiting. She reports feeling unwell throughout the day today. She vomited a few times with EMS and upon arrival to the emergency department. Had some coffee-ground emesis present in her vomitus. She evaluated in the emergency department her labs were significant for leukocytosis with white blood cell count 15.2 sodium 135 chloride 96 CO2 20 anion gap 20.7 creatinine 1.33 EGFR 52 glucose 123 lactic acid 5.1. Patient denies any fever, chills, dysuria, cough or other signs of infection. She was started on Protonix drip on arrival to emergency department given her coffee-ground emesis, also started on insulin drip given her DKA. She will be given to the ICU for further evaluation and monitoring of DKA, hematemesis. Patient reports her was performed in 2018 in the [facility] with recent complications, she reports she has been compliant with her antirejection medications although she cannot really recall the names or doses. We will admit to the ICU for further evaluation and management. Hospital Course: Patient was admitted for diabetic ketoacidosis, suspected upper GI bleed. She was treated with insulin drip her anion gap closed she was transitioned to long- acting insulin, her nausea vomiting and hematemesis also improved with conservative management. She has a history of renal transplant in 2018 mild FELA on admission which has also improved. This evening she reports that she would like to go home against medical advice. She plans on going back to [place] with her mother and re-establishing with her panel maker/PCP in that area. She is alert, oriented x4 and of sound decision making capacity. She was advised of risks of leaving AMA including possibility of DKA, . Pt verbalized understanding and plans to go home with mother and return to [place], reports a personal issue influencing her decision. Vital Signs/Physical Exam: Temp Pulse Resp BP Pulse Ox 97.5 F 106 H 18 156/92 H 100 03/31/22 20:00 03/31/22 20:00 03/31/22 20:00 03/31/22 20:00 03/31/22 20:00 General: Alert, In no apparent distress, Oriented x3 HEENT: Atraumatic, PERRLA, EOMI Neck: Supple, JVD not distended Respiratory: Clear to auscultation bilaterally, Normal air movement Cardiovascular: Regular rate/rhythm, Normal S1 S2 Gastrointestinal: Normal bowel sounds, No tenderness Musculoskeletal: No tenderness Integumentary: No rashes Neurological: Normal speech, Normal tone, Normal affect Laboratory Data at Discharge: WBC 8.60 K/uL (4.3-10.9) 03/31/22 06:08 Hgb 10.6 g/dL (12.0-15.0) L 03/31/22 06:08 Hct 32.4 % (36.0-45.0) L 03/31/22 06:08 Plt Count 223 K/uL (152-406) 03/31/22 06:08 PT 9.9 SECONDS (9.5-12.5) 03/29/22 20:00 INR 0.90 03/29/22 20:00 Sodium 136 mmol/L (136-145) 03/31/22 11:40 Potassium 3.7 mmol/L (3.5-5.1) 03/31/22 11:40 BUN 7 mg/dL (7-18) 03/31/22 11:40 Creatinine 0.70 mg/dL (0.55-1.3) 03/31/22 11:40 Glucose 278 mg/dL (74-106) H 03/31/22 11:40 Magnesium 1.9 mg/dL (1.8-2.4) 03/31/22 11:40 Total Bilirubin 0.5 mg/dL (0.2-1.0) 03/29/22 20:00 AST 9 U/L (15-37) L 03/29/22 20:00 ALT 20 U/L (12-78) 03/29/22 20:00 Alkaline Phosphatase 139 U/L (45-117) H 03/29/22 20:00 Triglycerides 138 mg/dL (<150) 03/30/22 05:15 Cholesterol 197 mg/dL (<200) 03/30/22 05:15 HDL Cholesterol 89 mg/dL (40-60) H 03/30/22 05:15 Cholesterol/HDL Ratio 2.21 03/30/22 05:15 Home Medications: Insulin Aspart [Novolog*] See Protocol SQ AC 01/21/14 Insulin Glargine Human [Lantus*] 20 units SQ DAILY 01/21/14 Acetam/Caff/Butal [Fioricet*] 1 tab PO Q12H PRN #30 tab 01/23/14 Atorvastatin Calcium 10 mg PO DAILY 03/30/22 Carisoprodol [Soma] 700 mg PO BID PRN 03/30/22 Cetirizine HCl [Zyrtec] 10 mg PO DAILY PRN 03/30/22 Gabapentin 100 mg PO BID 03/30/22 Levothyroxine [Synthroid*] 125 mcg PO [id number] 03/30/22 Mirtazapine [Remeron] 15 mg PO BEDTIME PRN 03/30/22 Mycophenolate Sodium [Mycophenolic Acid] 360 mg PO BID 03/30/22 Nitrofurantoin Monohyd/M-Cryst [Nitrofurantoin [place]-Mcr 100 mg] 100 mg PO BID 03/30/22 Pantoprazole Sodium [Protonix] 40 mg PO DAILY 03/30/22 Prednisone [Wili] 5 mg PO DAILY 03/30/22 Sumatriptan [Imitrex*] 50 mg PO BID PRN 03/30/22 Tacrolimus 1 mg PO BEDTIME 03/30/22 Tacrolimus 2 mg PO BREAKFAST 03/30/22 levETIRAcetam [Keppra*] 500 mg PO BID 03/30/22 Physician Discharge Instructions: Continue your home medications, follow up with you PCP and panel maker in the next 3-5 days. Return to closest ER for any worsening of symptoms, Diet: ADA Activity: Ad charlie Time spent managing pt's care (in minutes): 20
== END 2022-03-31 21:30 | disposition left against medical advice (07) | DRG 377 ==
LOC: ER 19:53 → ERHOLD 21:27 → 3RD-ICU 22:42 → 4TH 03-31 17:45
PROVIDERS: ADMIT Internal Medicine; ATTEND Internal Medicine
DX: K92.0 Hematemesis (principal); E10.10 Type 1 diabetes mellitus with ketoacidosis without coma; Z94.0 Kidney transplant status; Z94.83 Pancreas transplant status; N17.9 Acute kidney failure, unspecified; E03.9 Hypothyroidism, unspecified; E10.43 Type 1 diabetes mellitus with diabetic autonomic (poly)neuropathy; K31.84 Gastroparesis; K44.9 Diaphragmatic hernia without obstruction or gangrene; E86.9 Volume depletion, unspecified; E86.0 Dehydration; R31.29 Other microscopic hematuria; Z60.2 Problems related to living alone; Z56.0 Unemployment, unspecified; Z88.1 Allergy status to other antibiotic agents; Z79.4 Long term (current) use of insulin; Z53.29 Procedure and treatment not carried out because of patient's decision for other reasons; Z79.899 Other long term (current) drug therapy; Z79.890 Hormone replacement therapy; Z20.822 Contact with and (suspected) exposure to COVID-19
CPT/HCPCS: 36415; 71045; 74176; 80048; 80053; 80061; 81001; 82010; 82947; 83036; 83605; 83735; 84484; 84703; 85014; 85018; 85025; 85610; 86850; 86900; 86901; 87077; 87086; 87088; 87186; 87811; 93005; 99285; C9113; J0360; J1815; J2405; J2550; J3475; J3480; J7030; J7050; J7512

== ENCOUNTER 2022-08-23 14:38 | Inpatient (IN) | payer OTHER ==
--- OUTSIDE RECORDS SUMMARY | 2022-08-23 14:43 | XMS REPORT | Continuity of Care Document ---
:1980 Author Organization [facility] t Address [address] [place] [address] Care Team Providers Name Role Phone DANYELLE TRIPATHI Primary Care Physician Unavailable LUNA ROSENBAUM Attending Clinician Unavailable LUNA ROSENBAUM Attending Clinician Unavailable GISELLE JERRY Attending Clinician Unavailable HÉCTOR RANGEL Attending Clinician Unavailable MARY ELIZABETH Attending Clinician Unavailable MARY ELIZABETH Attending Clinician Unavailable Giselle Jerry MD Attending Clinician Danyelle Krueger Attending Clinician Doctor Unassigned, [place] Attending Clinician Unavailable DANYELLE TRIPATHI Attending Clinician Unavailable LUNA ROSENBAUM Admitting Clinician Unavailable Payers Payer Name Policy Type Policy Number Effective Date Expiration Date [facility] [id number] 2022 STAR PLUS 00:00:00 Problems Condition Condition Condition Status Onset Resolution Last Treating Co mments Source Name Details Category Date Date Treatment Clinician Date Seizures Seizures Disease Active 2021-07 Unive rs 07-03 ity of 00:00: [place] 00 Medical [place] Oral Oral Disease Active 2021-07 Univers contracept contracept 07-03 it y of brayan pill brayan pill 00:00: [place] surveillan surveillan 00 Me dical ce ce Branch Irregular Irregular Disease Active 2021-07 Uni vers menstrual menstrual 07-03 ity of cycle cycle 00:00: [place] 00 Medical Branch Pain Pain Disease Active 2021-07 Univers pelvic pelvic 1-02 ity of 00:00: [place] 00 Medical Branch HLD HLD Disease Active 2014-07 Univers (hyperlipi (hyperlipi 1-17 it y of demia) demia) 00:00: [place] 00 Medical Branch Insulin Insulin Disease Active 2014-07 Univers pump pump 1-17 ity of status status 00:00: [place] 00 Medical Branch Encounter Encounter Disease Active 2014-07 Uni vers for well for well 1-17 ity of woman exam woman exam 00:00: [place] with with 00 Medical routine routine Branch gynecologi gynecologi yobany exam yobany exam Vaginal Vaginal Disease Active Univers bleeding bleeding 6-04 ity of before 22 before 00:00: [place] weeks weeks 00 Medical gestation gestation Bran ch Abdominal Abdominal Disease Active Uni vers pain, pain, 6-04 ity of other other 00:00: [place] specified specified 00 [facility] site site Branch Breast Breast Disease Active Univers pain pain 5-20 ity of during during 00:00: [place] 00 [facility] Branch UTI in UTI in Disease Active Univers , , 5-20 it y of first first 00:00: [place] trimester trimester 00 [facility] Branch DM DM Disease Active Univers (diabetes (diabetes 9-24 ity of mellitus), mellitus), [place] type 1 type 1 00 Medical with with Branch complicati complicati ons ons Diabetic Diabetic Disease Active Unive rs nephropath nephropath 9-24 it y of y y 00:00: [place] 00 Medical Branch Essential Essential Disease Active Overview: Univers hypertensi hypertensi 9-24 Formattin ity of on on 00:00: g of this [place] 00 note Medical might be Branch different from the original. 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 ICD10 Diagnosis Term Maintenance Work[employer] Allergies, Adverse Reactions, Alerts Allergy Allergy Status Severity Reaction(s) Onset Inactive Treating Comm ents Source Name Type Date Date Clinician Meperidi Propensi Active Hives Patient Unive rs ne Hcl ty to 07-22 states ity of adverse 00:00: she is [place] reaction 00 currently Medic al s to taking Branch drug this medicatio n. Acetamin Propensi Active Nausea Patient Unive rs ophen-Co ty to and/or 07-22 is ity of deine adverse Vomiting 00:00[place] reaction 00 taking Medical s this Branch medicatio n. MEPERIDI DRUG Active Hives Univers NE HCL INGREDI 07-22 ity of 00:00: [place] Medical [facility] ACETAMIN DRUG Active N/V Univers OPHEN-CO 07-22 ity of DEINE 00:00: [place] 00 Medical Branch SULFAMET DRUG Active Hives Univers HOXAZOLE 7-30 ity of -TRIMETH 00:00: [place] OPRIM 00 [facility] Branch Sulfamet Propensi Active Rash Univer s hoxazole ty to 7-30 ity of -Trimeth adverse 00:00: [place] oprim reaction 00 Medical s Branch Social History Social Habit Start Date Stop Date Quantity Comments Source Exposure to 2022-05-13 2022-05-23 Not sure [facility] SARS-CoV-2 00:00:00 13:57:00 [facility] (event) [place] Alcohol intake 2022-05-03 2022-05-03 Current drinker Unive rsity of 00:00:00 00:00:00 of alcohol [facility] (finding) [place] Tobacco use and 2014-11-16 2014-11-16 Smokeless tobacco Un iversity of exposure 00:00:00 00:00:00 non-user [facility] Alcohol Comment 2009-02-22 2009-02-22 socially Universit y of 00:00:00 00:00:00 [facility] Sex [birth year] At [birth year] Universit y of 00:00:00 00:00:00 [facility] Smoking Status Start Date Stop Date Source Never smoked tobacco [facility] Medications Ordered Filled Start Stop Current Ordering Indication Dosage Frequency Signature Comments Components Source Medication Medication Date Date Medication? Clinician (SIG) Name Name vitamin 2021-07 Yes Take by [facility] D3-folic 07-03 mouth. ity of acid 125 13:04: [place] mcg (5,000 48 Medical unit)-1 mg Branch Tab cetirizine 2021-07 Yes Take by [facility] ers HCl/pseudoe 07-03 mouth. ity of phedrine 13:04: [place] (ZYRTEC-D 48 Medical ORAL) Branch NaCl 0.9% 2021-07 Yes [id number] Inhale Uni vers (NS) Soln 3 07-03 250,000 ity o f mL with 13:04: Units. [place] polymyxin B 48 Medical 500,000 Branch unit SolR 250,000 Units vitamin 2021-07 Yes Take by [facility] D3-folic 07-03 mouth. ity of acid 125 13:04: [place] mcg (5,000 48 Medical unit)-1 mg Branch Tab cetirizine 2021-07 Yes Take by [facility] ers HCl/pseudoe 07-03 mouth. ity of phedrine 13:04: [place] (ZYRTEC-D 48 Medical ORAL) Branch NaCl 0.9% 2021-07 Yes [id number] Inhale Uni vers (NS) Soln 3 07-03 250,000 ity o f mL with 13:04: Units. [place] polymyxin B 48 Medical 500,000 Branch unit SolR 250,000 Units vitamin 2021-07 Yes Take by [facility] D3-folic 07-03 mouth. ity of acid 125 13:04: [place] mcg (5,000 48 Medical unit)-1 mg Branch Tab cetirizine 2021-07 Yes Take by [facility] ers HCl/pseudoe 02 mouth. ity of phedrine 13:04: [place] (ZYRTEC-D 48 Medical ORAL) Branch NaCl 0.9% 2021-07 Yes [id number] Inhale Uni vers (NS) Soln 3 07-03 250,000 ity o f mL with 13:04: Units. [place] polymyxin B 48 Medical 500,000 Branch unit SolR 250,000 Units vitamin 2021-07 Yes Take by Univers D3-folic - mouth. ity of acid 125 13:04: [place] mcg (5,000 48 Medical unit)-1 mg Branch Tab cetirizine 2021-07 Yes Take by [facility] ers HCl/pseudoe 1- mouth. ity of phedrine 13:04: [place] (ZYRTEC-D 48 Medical ORAL) Branch NaCl 0.9% 2021-07 Yes [id number] Inhale Uni vers (NS) Soln 3 07-03 250,000 ity o f mL with 13:04: Units. [place] polymyxin B 48 Medical 500,000 Branch unit SolR 250,000 Units vitamin 2021-07 Yes Take by Univers D3-folic - mouth. ity of acid 125 13:04: [place] mcg (5,000 48 Medical unit)-1 mg Branch Tab cetirizine 2021-07 Yes Take by [facility] ers HCl/pseudoe 07-03 mouth. ity of phedrine 13:04: [place] (YRTEC-D 48 Medical ORAL) Branch NaCl 0.9% 2021-07 Yes [id number] Inhale Uni vers (NS) Soln 3 07-03 250,000 ity o f mL with 13:04: Units. [place] polymyxin B 48 Medical 500,000 Branch unit SolR 250,000 Units vitamin 2021-07 Yes Take by Univers D3-folic - mouth. ity of acid 125 13:04: [place] mcg (5,000 48 Medical unit)-1 mg Branch Tab cetirizine 2021-07 Yes Take by [facility] ers HCl/pseudoe 07-03 mouth. ity of phedrine 13:04: [place] (ZYRTEC-D 48 Medical ORAL) Branch NaCl 0.9% 2021-07 Yes [id number] Inhale Uni vers (NS) Soln 3 07-03 250,000 ity o f mL with 13:04: Units. [place] polymyxin B 48 Medical 500,000 Branch unit SolR 250,000 Units vitamin 2021-07 Yes Take by Univers D3-folic -02 mouth. ity of acid 125 13:04: [place] mcg (5,000 48 Medical unit)-1 mg Branch Tab cetirizine 2021-07 Yes Take by [facility] ers HCl/pseudoe -02 mouth. ity of phedrine 13:04: [place] (ZYRTEC-D 48 Medical ORAL) Branch NaCl 0.9% 2021-07 Yes [id number] Inhale Uni vers (NS) Soln 3 1- 250,000 ity o f mL with 13:04: Units. [place] polymyxin B 48 Medical 500,000 Branch unit SolR 250,000 Units vitamin 2021-07 Yes Take by [facility] D3-folic 07-03 mouth. ity of acid 125 13:04: [place] mcg (5,000 48 Medical unit)-1 mg Branch Tab cetirizine 2021-07 Yes Take by [facility] ers HCl/pseudoe 07-03 mouth. ity of phedrine 13:04: [place] (ZYRTEC-D 48 Medical ORAL) Branch NaCl 0.9% 2021-07 Yes [id number] Inhale Uni vers (NS) Soln 3 - 250,000 ity o f mL with 13:04: Units. [place] polymyxin B 48 Medical 500,000 Branch unit SolR 250,000 Units norethindro 2021-07 Yes [id number] 1{tbl} Take 1 Univers ne (ORTHO 1-02 tablet by ity o f MICRONOR) 00:00: [place] 0.35 mg 00 the Medical tablet morning. Branch norethindro 2021-07 Yes [id number] 1{tbl} Take 1 Univers ne (ORTHO 1-02 tablet by ity o f MICRONOR) 00:00: mouth [place] 0.35 mg 00 the Medical tablet morning. Branch norethindro 2021-07 Yes [id number] 1{tbl} Take 1 Univers ne (ORTHO 1-02 tablet by ity o f MICRONOR) 00:00: mouth [place] 0.35 mg 00 the Medical tablet morning. Branch norethindro 2021-07 Yes [id number] 1{tbl} Take 1 Univers ne (ORTHO 1-02 tablet by ity o f MICRONOR) 00:00: mouth [place] 0.35 mg 00 the Medical tablet morning. Branch norethindro 2021-07 Yes [id number] 1{tbl} Take 1 Univers ne (ORTHO 1-02 tablet by ity o f MICRONOR) 00:00: mouth [place] 0.35 mg 00 the Medical tablet morning. Branch norethindro 2021-07 Yes [id number] 1{tbl} Take 1 Univers ne (ORTHO 1-02 tablet by ity o f MICRONOR) 00:00: mouth [place] 0.35 mg 00 the Medical tablet morning. Branch norethindro 2021-07 Yes [id number] 1{tbl} Take 1 Univers ne (ORTHO 1-02 tablet by ity o f MICRONOR) 00:00: mouth [place] 0.35 mg 00 the Medical tablet morning. Branch norethindro 2021-07 Yes [id number] 1{tbl} Take 1 Univers ne (ORTHO 1-02 tablet by ity o f MICRONOR) 00:00: mouth [place] 0.35 mg 00 the Medical tablet morning. Branch methyldopa 2021-07- No 500mg Take 500 U nivers (ALDOMET) 0-28 10-28 mg by ity of 250 mg 09:52: 00:00 mouth 3 [place] tablet 02 :00 (three) Medical times Branch daily. methyldopa 2021-07 No 500mg Take 500 U nivers (ALDOMET) 0-28 10-28 mg by ity of 250 mg 09:52: 00:00 mouth 3 [place] tablet 02 :00 (three) Medical times Branch daily. azithromyci 2021-07 Yes [id number] 250mg Z-[place] = Univers n 250 mg 0-28 500 mg day ity o f tablet 00:00: 1, then [place] 00 250 mg Medical days 2 to Branch 5. benzonatate 2021-07 Yes [id number] 100mg Take 1 Univers (TESSALON 0-28 capsule by ity of PERLES) 100 00:00: mouth [place] mg capsule 00 every 8 Medica l (eight) Branch hours as needed for Cough. azithromyci 2021-07 Yes [id number] 250mg Z-[place] = Univers n 250 mg 0-28 500 mg day ity o f tablet 00:00: 1, then [place] 00 250 mg Medical days 2 to Branch 5. benzonatate 2021-07 Yes [id number] 100mg Take 1 Univers (TESSALON 0-28 capsule by ity of PERLES) 100 00:00: mouth [place] mg capsule 00 every 8 Medica l (eight) Branch hours as needed for Cough. azithromyci 2021-07 Yes [id number] 250mg Z-[place] = Univers n 250 mg 0-28 500 mg day ity o f tablet 00:00: 1, then [place] 00 250 mg Medical days 2 to Branch 5. benzonatate 2021-07 Yes [id number] 100mg Take 1 Univers (TESSALON 0-28 capsule by ity of [employer] Properties) 100 00:00: mouth [place] mg capsule 00 every 8 Medica l (eight) Branch hours as needed for Cough. azithromyci 2021-07 Yes [id number] 250mg Z-[place] = Univers n 250 mg 0-28 500 mg day ity o f tablet 00:00: 1, then [place] 00 250 mg Medical days 2 to Branch 5. benzonatate 2021-07 Yes [id number] 100mg Take 1 Univers (TESSALON 0-28 capsule by ity of [employer]LH[employer]) 100 00:00: mouth [place] mg capsule 00 every 8 Medica l (eight) Branch hours as needed for Cough. azithromyci 2021-07 Yes [id number] 250mg Z-[place] = Univers n 250 mg 0-28 500 mg day ity o f tablet 00:00: 1, then [place] 00 250 mg Medical days 2 to Branch 5. benzonatate 2021-07 Yes [id number] 100mg Take 1 Univers (TESSALON 0-28 capsule by ity of [employer]) 100 00:00: mouth [place] mg capsule 00 every 8 Medica l (eight) Branch hours as needed for Cough. azithromyci 2021-07 Yes [id number] 250mg Z-[place] = Univers n 250 mg 0-28 500 mg day ity o f tablet 00:00: 1, then [place] 00 250 mg Medical days 2 to Branch 5. benzonatate 2021-07 Yes [id number] 100mg Take 1 Univers (TESSALON 0-28 capsule by ity of [employer]) 100 00:00: mouth [place] mg capsule 00 every 8 Medica l (eight) Branch hours as needed for Cough. azithromyci 2021-07 Yes [id number] 250mg Z-[place] = Univers n 250 mg 0-28 500 mg day ity o f tablet 00:00: 1, then [place] 00 250 mg Medical days 2 to Branch 5. benzonatate 2021-07 Yes [id number] 100mg Take 1 Univers (TESSALON 0-28 capsule by ity of PERLES) 100 00:00: mouth [place] mg capsule 00 every 8 Medica l (eight) Branch hours as needed for Cough. azithromyci 2021-07 Yes [id number] 250mg Z-[place] = Univers n 250 mg 0-28 500 mg day ity o f tablet 00:00: 1, then [place] 00 250 mg Medical days 2 to Branch 5. benzonatate 2021-07 Yes [id number] 100mg Take 1 Univers (TESSALON 0-28 capsule by ity of PERLES) 100 00:00: mouth [place] mg capsule 00 every 8 Medica l (eight) Branch hours as needed for Cough. azithromyci 2021-07 Yes [id number] 250mg Z-[place] = Univers n 250 mg 0-28 500 mg day ity o f tablet 00:00: 1, then [place] 00 250 mg Medical days 2 to Branch 5. benzonatate 2021-07 Yes [id number] 100mg Take 1 Univers (TESSALON 0-28 capsule by ity of PERLES) 100 00:00: mouth [place] mg capsule 00 every 8 Medica l (eight) Branch hours as needed for Cough. azithromyci 2021-07 Yes [id number] 250mg Z-[place] = Univers n 250 mg 0-28 500 mg day ity o f tablet 00:00: 1, then [place] 00 250 mg Medical days 2 to Branch 5. benzonatate 2021-07 Yes [id number] 100mg Take 1 Univers (TESSALON 0-28 capsule by ity of PERLES) 100 00:00: mouth [place] mg capsule 00 every 8 Medica l (eight) Branch hours as needed for Cough. mycophenola 2021-07 Yes 360mg Take 360 U nivers te sodium 0-13 mg by ity of 360 mg EC 00:00: mouth [place] tablet 00 the Medical morning Branch and 360 mg in the evening. levothyroxi 2021-07 Yes 125ug Take 125 U nivers ne 125 mcg 0-13 mcg by ity of tablet 00:00: mouth. [place] 00 Medical Branch mycophenola 2021-07 Yes 360mg Take 360 U nivers te sodium 0-13 mg by ity of 360 mg EC 00:00: mouth [place] tablet 00 the Medical morning Branch and 360 mg in the evening. levothyroxi 2021-07 Yes 125ug Take 125 U nivers ne 125 mcg 0-13 mcg by ity of tablet 00:00: mouth. [place] [facility] mycophenola 2021-07 Yes 360mg Take 360 U nivers te sodium 0-13 mg by ity of 360 mg EC 00:00: mouth [place] tablet 00 the Medical morning Branch and 360 mg in the evening. levothyroxi 2021-07 Yes 125ug Take 125 U nivers ne 125 mcg 0-13 mcg by ity of tablet 00:00: mouth. [place] [facility] mycophenola 2021-07 Yes 360mg Take 360 U nivers te sodium 0-13 mg by ity of 360 mg EC 00:00: mouth in [place] tablet 00 the Medical morning Branch and 360 mg in the evening. levothyroxi 2021-07 Yes 125ug Take 125 U nivers ne 125 mcg 0-13 mcg by ity of tablet 00:00: mouth. [place] [facility] mycophenola 2021-07 Yes 360mg Take 360 U nivers te sodium 0-13 mg by ity of 360 mg EC 00:00: mouth in [place] tablet 00 the Medical morning Branch and 360 mg in the evening. levothyroxi 2021-07 Yes 125ug Take 125 U nivers ne 125 mcg 0-13 mcg by ity of tablet 00:00: mouth. [place] [facility] mycophenola 2021-07 Yes 360mg Take 360 U nivers te sodium 0-13 mg by ity of 360 mg EC 00:00: mouth in [place] tablet 00 the Medical morning Branch and 360 mg in the evening. levothyroxi 2021-07 Yes 125ug Take 125 U nivers ne 125 mcg 0-13 mcg by ity of tablet 00:00: mouth. [place] [facility] mycophenola 2021-07 Yes 360mg Take 360 U nivers te sodium 0-13 mg by ity of 360 mg EC 00:00: mouth in [place] tablet 00 the Medical morning Branch and 360 mg in the evening. levothyroxi 2021-07 Yes 125ug Take 125 U nivers ne 125 mcg 0-13 mcg by ity of tablet 00:00: mouth. [address] mycophenola 2021-07 Yes 360mg Take 360 U nivers te sodium 0-13 mg by ity of 360 mg EC 00:00: mouth in [place] tablet 00 the Medical morning Branch and 360 mg in the evening. levothyroxi 2021-07 Yes 125ug Take 125 U nivers ne 125 mcg 0-13 mcg by ity of tablet 00:00: mouth. Medical Branch mycophenola 2021-07 Yes 360mg Take 360 U nivers te sodium 0-13 mg by ity of 360 mg EC 00:00: mouth in [place] tablet 00 the Medical morning Branch and 360 mg in the evening. levothyroxi 2021-07 Yes 125ug Take 125 U nivers ne 125 mcg 0-13 mcg by ity of tablet 00:00: mouth. Medical Branch mycophenola 2021-07 Yes 360mg Take 360 U nivers te sodium 0-13 mg by ity of 360 mg EC 00:00: mouth in [place] tablet 00 the Medical morning Branch and 360 mg in the evening. levothyroxi 2021-07 Yes 125ug Take 125 U nivers ne 125 mcg 0-13 mcg by ity of tablet 00:00: mouth. Medical Branch predniSONE 2021-07 Yes 5mg Take 5 mg Un yanely 5 mg tablet 0-08 by mouth ity of 00:00: in the [place] morning. Medical Branch pantoprazol 2021-07 Yes 40mg Take 40 mg Univers e 40 mg EC 0-08 by mouth ity o f tablet 00:00: in the [place] morning. Medical Branch gabapentin 2021-07 Yes TAKE 1 Unive rs 100 mg 0-08 CAPSULE ity of capsule 00:00: (100 MG TOTAL) BY Medical MOUTH Branch TWO(2) TIMES DAILY levETIRAcet 2021-07 Yes 500mg Take 500 U nivers am 500 mg 0-08 mg by ity of tablet 00:00: mouth in the Medical morning Branch and 500 mg in the evening. predniSONE 2021-07 Yes 5mg Take 5 mg Un yanely 5 mg tablet 0-08 by mouth ity of 00:00: in the [place] morning. Medical Branch pantoprazol 2021-07 Yes 40mg Take 40 mg Univers e 40 mg EC 0-08 by mouth ity o f tablet 00:00: in the [place] morning. Medical Branch gabapentin 2021-07 Yes TAKE 1 Unive rs 100 mg 0-08 CAPSULE ity of capsule 00:00: (100 MG TOTAL) BY Medical MOUTH Branch TWO(2) TIMES DAILY levETIRAcet 2021-07 Yes 500mg Take 500 U nivers am 500 mg 0-08 mg by ity of tablet 00:00: mouth in [place] the Medical morning Branch and 500 mg in the evening. predniSONE 2021-07 Yes 5mg Take 5 mg Un yanely 5 mg tablet 0-08 by mouth ity of 00:00: in the [place] 00 morning. Medical Branch pantoprazol 2021-07 Yes 40mg Take 40 mg Univers e 40 mg EC 0-08 by mouth ity o f tablet 00:00: in the [place] 00 morning. Medical Branch gabapentin 2021-07 Yes TAKE 1 Unive rs 100 mg 0-08 CAPSULE ity of capsule 00:00: (100 MG TOTAL) BY Medical MOUTH Branch TWO(2) TIMES DAILY levETIRAcet 2021-07 Yes 500mg Take 500 U nivers am 500 mg 0-08 mg by ity of tablet 00:00: mouth in [place] the Medical morning Branch and 500 mg in the evening. predniSONE 2021-07 Yes 5mg Take 5 mg Un yanely 5 mg tablet 0-08 by mouth ity of 00:00: in the [place] morning. Medical Branch pantoprazol 2021-07 Yes 40mg Take 40 mg Univers e 40 mg EC 0-08 by mouth ity o f tablet 00:00: in the [place] morning. Medical Branch gabapentin 2021-07 Yes TAKE 1 Unive rs 100 mg 0-08 CAPSULE ity of capsule 00:00: (100 MG TOTAL) BY Medical MOUTH Branch TWO(2) TIMES DAILY levETIRAcet 2021-07 Yes 500mg Take 500 U nivers am 500 mg 0-08 mg by ity of tablet 00:00: mouth in [place] 00 the Medical morning Branch and 500 mg in the evening. predniSONE 2021-07 Yes 5mg Take 5 mg Un yanely 5 mg tablet 0-08 by mouth ity of 00:00: in the [place] 00 morning. Medical Branch pantoprazol 2021-07 Yes 40mg Take 40 mg Univers e 40 mg EC 0-08 by mouth ity o f tablet 00:00: in the [place] 00 morning. Medical Branch gabapentin 2021-07 Yes TAKE 1 Unive rs 100 mg 0-08 CAPSULE ity of capsule 00:00: (100 MG TOTAL) BY Medical MOUTH Branch TWO(2) TIMES DAILY levETIRAcet 2021-07 Yes 500mg Take 500 U nivers am 500 mg 0-08 mg by ity of tablet 00:00: mouth in [place] the Medical morning Branch and 500 mg in the evening. predniSONE 2021-07 Yes 5mg Take 5 mg Un yanely 5 mg tablet 0-08 by mouth ity of 00:00: in the [place] morning. Medical Branch pantoprazol 2021-07 Yes 40mg Take 40 mg Univers e 40 mg EC 0-08 by mouth ity o f tablet 00:00: in the [place] 00 morning. Medical Branch gabapentin 2021-07 Yes TAKE 1 Unive rs 100 mg 0-08 CAPSULE ity of capsule 00:00: (100 MG TOTAL) BY Medical MOUTH Branch TWO(2) TIMES DAILY levETIRAcet 2021-07 Yes 500mg Take 500 U nivers am 500 mg 0-08 mg by ity of tablet 00:00: mouth in [place] the Medical morning Branch and 500 mg in the evening. predniSONE 2021-07 Yes 5mg Take 5 mg Un yanely 5 mg tablet 0-08 by mouth ity of 00:00: in the [place] morning. Medical Branch pantoprazol 2021-07 Yes 40mg Take 40 mg Univers e 40 mg EC 0-08 by mouth ity o f tablet 00:00: in the [place] morning. Medical Branch gabapentin 2021-07 Yes TAKE 1 Unive rs 100 mg 0-08 CAPSULE ity of capsule 00:00: (100 MG TOTAL) BY Medical MOUTH Branch TWO(2) TIMES DAILY levETIRAcet 2021-07 Yes 500mg Take 500 U nivers am 500 mg 0-08 mg by ity of tablet 00:00: mouth in [place] 00 the Medical morning Branch and 500 mg in the evening. predniSONE 2021-07 Yes 5mg Take 5 mg Un yanely 5 mg tablet 0-08 by mouth ity of 00:00: in the [place] morning. Medical Branch pantoprazol 2021-07 Yes 40mg Take 40 mg Univers e 40 mg EC 0-08 by mouth ity o f tablet 00:00: in the [place] 00 morning. Medical Branch gabapentin 2021-07 Yes TAKE 1 Unive rs 100 mg 0-08 CAPSULE ity of capsule 00:00: (100 MG TOTAL) BY Medical MOUTH Branch TWO(2) TIMES DAILY levETIRAcet 2021-07 Yes 500mg Take 500 U nivers am 500 mg 0-08 mg by ity of tablet 00:00: mouth in [place] the Medical morning Branch and 500 mg in the evening. predniSONE 2021-07 Yes 5mg Take 5 mg Un yanely 5 mg tablet 0-08 by mouth ity of 00:00: in the [place] morning. Medical Branch pantoprazol 2021-07 Yes 40mg Take 40 mg Univers e 40 mg EC 0-08 by mouth ity o f tablet 00:00: in the [place] [id number] morning. Medical Branch gabapentin 2021-07 Yes TAKE 1 Unive rs 100 mg 0-08 CAPSULE ity of capsule 00:00: (100 MG [place] TOTAL) BY Medical MOUTH Branch TWO(2) TIMES DAILY levETIRAcet 2021-07 Yes 500mg Take 500 U nivers am 500 mg 0-08 mg by ity of tablet 00:00: mouth in [place] the Medical morning Branch and 500 mg in the evening. predniSONE 2021-07 Yes 5mg Take 5 mg Un yanely 5 mg tablet 0-08 by mouth ity of 00:00: in the [place] [address] morning. Medical Branch pantoprazol 2021-07 Yes 40mg Take 40 mg Univers e 40 mg EC 0-08 by mouth ity o f tablet 00:00: in the [place] morning. Medical Branch gabapentin 2021-07 Yes TAKE 1 Unive rs 100 mg 0-08 CAPSULE ity of capsule 00:00: (100 MG [place] TOTAL) BY Medical MOUTH Branch TWO(2) TIMES DAILY levETIRAcet 2021-07 Yes 500mg Take 500 U nivers am 500 mg 0-08 mg by ity of tablet 00:00: mouth in [place] [address] the Medical morning Branch and 500 mg in the evening. ondansetron 2021-07- No 4mg Take 4 mg Univers 4 mg 0-08 10-28 by mouth ity of disintegrat 00:00: 00:00 every 8 [place] tablet 00 :00 (eight) Medica l hours. Branch ondansetron 2021-07- No 4mg Take 4 mg Univers 4 mg 0-08 10-28 by mouth ity of disintegrat 00:00: 00:00 every 8 [place] tablet 00 :00 (eight) Medica l hours. Branch atorvastati 2021-07 Yes 10mg Take 10 mg Univers n 10 mg 0-07 by mouth ity of tablet 00:00: in the [place] morning. Medical Branch [facility] 2021-07 Yes INJECT 20 Univer s U-100 0-07 UNITS ity of INSULIN 100 00:00: SUBCUTANEO [place] unit/mL 00 USLY EVERY Medica l solution DAY Branch atorvastati 2021-07 Yes 10mg Take 10 mg Univers n 10 mg 0-07 by mouth ity of tablet 00:00: in the [place] morning. Medical Branch [facility] 2021-07 Yes INJECT 20 Univer s U-100 0-07 UNITS ity of INSULIN 100 00:00: SUBCUTANEO [place] unit/mL 00 USLY EVERY Medica l solution DAY Branch atorvastati 2021-07 Yes 10mg Take 10 mg Univers n 10 mg 0-07 by mouth ity of tablet 00:00: in the [place] morning. Medical Branch [facility] 2021-07 Yes INJECT 20 Univer s U-100 0-07 UNITS ity of INSULIN 100 00:00: SUBCUTANEO [place] unit/mL 00 USLY EVERY Medica l solution DAY Branch atorvastati 2021-07 Yes 10mg Take 10 mg Univers n 10 mg 0-07 by mouth ity of tablet 00:00: in the [place] morning. Medical Branch [facility] 2021-07 Yes INJECT 20 Univer s U-100 0-07 UNITS ity of INSULIN 100 00:00: SUBCUTANEO [place] unit/mL 00 USLY EVERY Medica l solution DAY Branch atorvastati 2021-07 Yes 10mg Take 10 mg Univers n 10 mg 0-07 by mouth ity of tablet 00:00: in the [place] morning. Medical Branch [facility] 2021-07 Yes INJECT 20 Univer s U-100 0-07 UNITS ity of INSULIN 100 00:00: SUBCUTANEO [place] unit/mL 00 USLY EVERY Medica l solution DAY Branch atorvastati 2021-07 Yes 10mg Take 10 mg Univers n 10 mg 0-07 by mouth ity of tablet 00:00: in the [place] morning. Medical Branch [facility] 2021-07 Yes INJECT 20 Univer s U-100 0-07 UNITS ity of INSULIN 100 00:00: SUBCUTANEO [place] unit/mL 00 USLY EVERY Medica l solution DAY Branch atorvastati 2021-07 Yes 10mg Take 10 mg Univers n 10 mg 0-07 by mouth ity of tablet 00:00: in the [place] morning. Medical Branch [employer] [facility] [employer] [facility] [employer] 2021-07 Yes INJECT 20 Univer s U-100 0-07 UNITS ity of INSULIN 100 00:00: SUBCUTANEO [place] unit/mL 00 USLY EVERY Medica l solution DAY Branch atorvastati 2021-07 Yes 10mg Take 10 mg Univers n 10 mg 0-07 by mouth ity of tablet 00:00: in the [place] morning. Medical Branch [employer] [facility] 2021-07 Yes INJECT 20 Univer s U-100 0-07 UNITS ity of INSULIN 100 00:00: SUBCUTANEO [place] unit/mL 00 USLY EVERY Medica l solution DAY Branch atorvastati 2021-07 Yes 10mg Take 10 mg Univers n 10 mg 0-07 by mouth ity of tablet 00:00: in the [place] morning. Medical Branch [employer] [facility] [facility] 2021-07 Yes INJECT 20 Univer s U-100 0-07 UNITS ity of INSULIN 100 00:00: SUBCUTANEO [place] unit/mL 00 USLY EVERY Medica l solution DAY Branch atorvastati 2021-07 Yes 10mg Take 10 mg Univers n 10 mg 0-07 by mouth ity of tablet 00:00: in the [place] morning. Medical Branch [employer] [facility] 2021-07 Yes INJECT 20 Univer s U-100 0-07 UNITS ity of INSULIN 100 00:00: SUBCUTANEO [place] unit/mL 00 USLY EVERY Medica l solution DAY Branch norgestimat 2021-07 Yes 1{tbl} Take 1 Un yanely e-ethinyl 0-06 tablet by ity o f estradioL 00:00: [place] 0.18/0.215/ 00 the Medical 0.25 mg-35 morning. Branc h mcg (28) tablet norgestimat 2021-07 Yes 1{tbl} Take 1 Un yanely e-ethinyl 0-06 tablet by ity o f estradioL 00:00: [place] 0.18/0.215/ 00 the Medical 0.25 mg-35 morning. Branc h mcg (28) tablet norgestimat 2021-07- No 1{tbl} Take 1 U nivers e-ethinyl 0-05-03 tablet by ity of estradioL 00:00: 00:00 mouth in [place] 0.18/0.215/ 00 :00 the Medical 0.25 mg-35 morning. Branc h mcg (28) tablet norgestimat 2021-07- No 1{tbl} Take 1 U nivers e-ethinyl 0-05-03 tablet by ity of estradioL 00:00: 00:00 mouth in [place] 0.18/0.215/ 00 :00 the Medical 0.25 mg-35 morning. Branc h mcg (28) tablet tacrolimus Yes TAKE 2 Unive rs 1 mg 9-10 CAPSULES ity of capsule 00:00: (2MG) [place] 00 ORALLY IN Medical THE Branch MORNING AND 1 CAPSULE (1MG) IN EVENING Nitrofurant Yes 100mg Take 100 U nivers oin&Nit. 9-10 mg by ity of Macrocryst 00:00: mouth in [place] 100 mg 00 the Medical capsule morning Branch and 100 mg in the evening. tacrolimus Yes TAKE 2 Unive rs 1 mg 9-10 CAPSULES ity of capsule 00:00: (2MG) [place] 00 ORALLY IN Medical THE Branch MORNING AND 1 CAPSULE (1MG) IN EVENING Nitrofurant 0 Yes 100mg Take 100 U nivers oin&Nit. 9-10 mg by ity of Macrocryst 00:00: mouth in [place] 100 mg 00 the Medical capsule morning Branch and 100 mg in the evening. tacrolimus Yes TAKE 2 Unive rs 1 mg 9-10 CAPSULES ity of capsule 00:00: (2MG) [place] 00 ORALLY IN Medical THE Branch MORNING AND 1 CAPSULE (1MG) IN EVENING Nitrofurant 0 Yes 100mg Take 100 U nivers oin&Nit. 9-10 mg by ity of Macrocryst 00:00: mouth in [place] 100 mg 00 the Medical capsule morning Branch and 100 mg in the evening. tacrolimus Yes TAKE 2 Unive rs 1 mg 9-10 CAPSULES ity of capsule 00:00: (2MG) [place] 00 ORALLY IN Medical THE Branch MORNING AND 1 CAPSULE (1MG) IN EVENING Nitrofurant 0 Yes 100mg Take 100 U nivers oin&Nit. 9-10 mg by ity of Macrocryst 00:00: mouth in [place] 100 mg 00 the Medical capsule morning Branch and 100 mg in the evening. tacrolimus Yes TAKE 2 Unive rs 1 mg 9-10 CAPSULES ity of capsule 00:00: (2MG) [place] 00 ORALLY IN Medical THE Branch MORNING AND 1 CAPSULE (1MG) IN EVENING Nitrofurant 2021-0 Yes 100mg Take 100 U nivers oin&Nit. 9-10 mg by ity of Macrocryst 00:00: mouth in [place] 100 mg 00 the Medical capsule morning Branch and 100 mg in the evening. tacrolimus Yes TAKE 2 Unive rs 1 mg 9-10 CAPSULES ity of capsule 00:00: (2MG) [place] 00 ORALLY IN Medical THE Branch MORNING AND 1 CAPSULE (1MG) IN EVENING Nitrofurant 0 Yes 100mg Take 100 U nivers oin&Nit. 9-10 mg by ity of Macrocryst 00:00: mouth in [place] 100 mg 00 the Medical capsule morning Branch and 100 mg in the evening. tacrolimus Yes TAKE 2 Unive rs 1 mg 9-10 CAPSULES ity of capsule 00:00: (2MG) [place] 00 ORALLY IN Medical THE Branch MORNING AND 1 CAPSULE (1MG) IN EVENING Nitrofurant 2021-0 Yes 100mg Take 100 U nivers oin&Nit. 9-10 mg by ity of Macrocryst 00:00: mouth in [place] 100 mg 00 the Medical capsule morning Branch and 100 mg in the evening. tacrolimus Yes TAKE 2 Unive rs 1 mg 9-10 CAPSULES ity of capsule 00:00: (2MG) [place] 00 ORALLY IN Medical THE Branch MORNING AND 1 CAPSULE (1MG) IN EVENING Nitrofurant 2021-0 Yes 100mg Take 100 U nivers oin&Nit. 9-10 mg by ity of Macrocryst 00:00: mouth in [place] 100 mg 00 the Medical capsule morning Branch and 100 mg in the evening. tacrolimus 2021- Yes TAKE 2 Unive rs 1 mg 9-10 CAPSULES ity of capsule 00:00: (2MG) [place] 00 ORALLY IN Medical THE Branch MORNING AND 1 CAPSULE (1MG) IN EVENING Nitrofurant Yes 100mg Take 100 U nivers oin&Nit. 9-10 mg by ity of Macrocryst 00:00: mouth in [place] 100 mg 00 the Medical capsule morning Branch and 100 mg in the evening. tacrolimus Yes TAKE 2 Unive rs 1 mg 9-10 CAPSULES ity of capsule 00:00: (2MG) [place] 00 ORALLY IN Medical THE Branch MORNING AND 1 CAPSULE (1MG) IN EVENING Nitrofurant Yes 100mg Take 100 U nivers oin&Nit. 9-10 mg by ity of Macrocryst 00:00: mouth in [place] 100 mg 00 the Medical capsule morning Branch and 100 mg in the evening. losartan-hy 2015-07- No TAKE 1 Uni vers drochloroth 0-21 10-28 TABLET BY it y of iazide 00:00: 00:00 MOUTH [place] (HYZAAR) 00 :00 EVERY DAY Medica l 50-12.5 mg Branch per tablet losartan-hy 2015-07- No TAKE 1 Uni vers drochloroth 0-21 10-28 TABLET BY it y of iazide 00:00: 00:00 MOUTH [place] (HYZAAR) 00 :00 EVERY DAY Medica l 50-12.5 mg Branch per tablet levothyroxi 2021- No Take 1 tab Univers ne 03-07 by mouth ity of (SYNTHROID) 00:00: 00:00 daily, no [place] 150 mcg 00 :00 further Medical tablet refills Branch until makes/keep s appointmen t atorvastati 2021- No Take 1 tab Univers n (LIPITOR) 03-07 by mouth ity of 40 mg 00:00: 00:00 at [place] tablet 00 :00 bedtime, Medical no further Branch refills until makes/keep s appointmen t levothyroxi 2021- No Take 1 tab Univers ne 03-07 by mouth ity of (SYNTHROID) 00:00: 00:00 daily, no [place] 150 mcg 00 :00 further Medical tablet refills Branch until makes/keep s appointmen t atorvastati 2021- No Take 1 tab Univers n (LIPITOR) 03-07 by mouth ity of 40 mg 00:00: 00:00 at [place] tablet 00 :00 bedtime, Medical no further Branch refills until makes/keep s appointmen t blood sugar 2021- No Use as Uni vers diagnostic 02-13 directed, ity of (CONTOUR 00:00: 00:00 DX:E11.9, [place] NEXT 00 :00 QID Medical STRIPS) Branch strip Lancets 2021- No Use as Univers (MICROLET 02-13 directed, ity of LANCET) 00:00: 00:00 Dx:E11.9, [place] Misc 00 :00 QID Medical Branch blood sugar 2021- No Use as Uni vers diagnostic 02-13 directed, ity of (CONTOUR 00:00: 00:00 DX:E11.9, [place] NEXT 00 :00 QID Medical STRIPS) Branch strip Lancets 2021- No Use as Univers (MICROLET 02-13 directed, ity of LANCET) 00:00: 00:00 Dx:E11.9, [place] Misc 00 :00 QID Medical Branch NOVOLOG 100 2021- No INJECT Uni vers unit/mL 01-05 BELOW THE ity of solution 00:00: 00:00 SKIN [place] 00 :00 DIRECTED Medical PER Branch SLIDING SCALE NOVOLOG 100 2021- No INJECT Uni vers unit/mL 01-05 BELOW THE ity of solution 00:00: 00:00 SKIN [place] 00 :00 DIRECTED Medical PER Branch SLIDING SCALE 2021- No 1 tab Univers #115-iron-f 11-19 daily, ity o f olic acid 00:00: 00:00 disp 90, 3 [place] ( 00 :00 refills Medical 19) 29 mg Branch iron- 1 mg Chew 2021- No 1 tab Univers #115-iron-f 11-19 daily, ity o f olic acid 00:00: 00:00 disp 90, 3 [place] ( 00 :00 refills Medical 19) 29 mg Branch iron- 1 mg Chew Glucagon 1 2021- No [id number] 1mg Inject 1 Univers mg Kit 9-18 10-28 mg as ity of 00:00: 00:00 directed [place] 00 :00 as needed Medical (low blood Branch sugar). Glucagon 1 2021- No [id number] 1mg Inject 1 Univers mg Kit 9-18 10-28 mg as ity of 00:00: 00:00 directed [place] 00 :00 as needed Medical (low blood Branch sugar). BD 2021- No Univers ULTRAFINE -21 10- ity of III MINI 00:00: 00:00 [place] PEN 31 x 00 :00 Medical 3/16 " Ndle Branch BD 2021- No Univers ULTRAFINE 1-21 10-28 ity of III MINI 00:00: 00:00 [place] PEN 31 x 00 :00 Medical 3/16 " Ndle Branch Immunizations Ordered Filled Immunization Date Status Comments Sour e Immunization Name Name Td 2014-07-02 Completed University of 00:00:00 [facility] Td 2014-07-02 Completed University of 00:00:00 [facility] Td 2014-07-02 Completed University of 00:00:00 [place] [facility] Td 2014-07-02 Completed University of 00:00:00 [place] [facility] Td 2014-07-02 Completed University of 00:00:00 [place] [facility] Td 2014-07-02 Completed University of 00:00:00 [place] [facility] Td 2014-07-02 Completed University of 00:00:00 [place] [facility] Td 2014-07-02 Completed University of 00:00:00 [facility] Td 2014-07-02 Completed University of 00:00:00 [facility] Td 2014-07-02 Completed University of 00:00:00 [facility] Vital Signs Vital Name Observation Time Observation Value Comments Source Systolic blood 2022-05-23 20:16:00 121 mm[Hg] Univer sity of pressure [facility] Diastolic blood 2022-05-23 20:16:00 81 mm[Hg] Unive rsity of pressure [facility] Heart rate 2022-05-23 20:16:00 95 /min [facility] Respiratory rate 2022-05-23 20:16:00 19 /min Univ ersity of [facility] Body height 2022-05-23 20:16:00 154.9 cm [facility] Body weight 2022-05-23 20:16:00 54.885 kg Universi ty [facility] [place] [facility] BMI 2022-05-23 20:16:00 22.86 kg/m2 Universi ty of [place] [facility] Oxygen saturation in 2022-05-23 20:16:00 98 /min University of Arterial blood by [facility] Pulse oximetry Branch Systolic blood 2022-05-03 18:12:00 95 mm[Hg] Univer sity of pressure [place] [facility] Diastolic blood 2022-05-03 18:12:00 67 mm[Hg] Unive rsity of pressure [place] [facility] Heart rate 2022-05-03 18:12:00 86 /min [facility]i ty [facility] [place] [facility] Body temperature 2022-05-03 18:12:00 36.83 Valerie Univ ersity of [place] [facility] Respiratory rate 2022-05-03 18:12:00 17 /min Univ ersity of [place] [facility] Body height 2022-05-03 18:12:00 154.9 cm Universi ty [facility] [place] [facility] Body weight 2022-05-03 18:12:00 56.427 kg [facility] [place] [facility] BMI 2022-05-03 18:12:00 23.51 kg/m2 [facility] [place] [facility] Systolic blood 2022-04-28 14:50:00 114 mm[Hg] Univer sity of pressure [place] [facility] Diastolic blood 2022-04-28 14:50:00 77 mm[Hg] Unive rsity of pressure [place] [facility] Heart rate 2022-04-28 14:50:00 83 /min [facility] [place] [facility] Body temperature 2022-04-28 14:50:00 37.17 Valerie Univ ersity of [place] [facility] Body height 2022-04-28 14:50:00 154.9 cm Universi ty [facility] [place] [facility] Body weight 2022-04-28 14:50:00 56.564 kg [facility]i [facility] [place] [facility] BMI 2022-04-28 14:50:00 23.56 kg/m2 [facility] [place] [facility] Oxygen saturation in 2022-04-28 14:50:00 99 /min University of Arterial blood by [facility] Pulse oximetry Branch Procedures Procedure Date / Time Performing Clinician Source Performed US PELVIS COMPLETE WITH 2022-05-17 21:48:22 [facility] [place] [facility] 2022-05-17 20:42:14 Doctor Unassigned, No Un [facility] DIAGNOSIS AND TREATMENT Name Medical Branch Encounters Start End Encounter Admission Attending Care Care Encounter Source Date/Time Date/Time Type Type Clinicians Facility Department ID 2022-06-14 2022-06-14 Outpatient R ROSALINO [facility] [id number] Univers 15:00:00 15:00:00 MELINDAMADAN re zuniga [facility] 2022-06-09 2022-06-09 Outpatient R CLAIRE [facility] [id number] Univers 13:30:00 13:30:00 HÉCTOR grimaldo [facility] 2022-06-02 2022-06-02 Outpatient R MARY ELIZABETH [facility] [id number] Univers 13:00:00 13:00:00 MARY ELIZABETH [facility] 2022-05-23 2022-05-23 Outpatient R ROSALINO [facility] [id number] Univers 13:40:00 14:51:52 MELINDAMADAN re o nadia [facility] 2022-05-23 2022-05-23 [facility] [id number] Univers 13:40:00 14:51:52 Visit Giselle [place] [id number] ity [facility] [id number] [place] PROFESS[place] [id number] Al elpidio HERRERA 059 [facility] 2022-05-18 2022-05-18 Telephone [facility] [id number] Univers 00:00:00 00:00:00 Danyelle [facility] [id number] i ty of [place] [id number] [place] JOANNE?BLEA [phone] Al dical WUEY [address] [place] MEDICAL OFFICE BUILDING 2022-05-17 2022-05-17 Outpatient R LUNA ROSENBAUM [facility] B [id number] Univers 14:44:28 23:59:00 LUNA ROSENBAUM tricia [facility] 2022-05-17 2022-05-17 [facility] [id number] Univers 14:44:28 23:59:00 Encounter Rosauradania WISEMAN [id number] ity of [place] 4.2.7.2.686 [place] [facility] [id number] [facility] 806 Branch 2022-05-17 2022-05-17 Orders Doctor MARSHALL [id number] Univers 00:00:00 00:00:00 Only Unassigned, OLY 350.1.13.10 ity of [facility] 4.2.7.2.686 [place] [id number] [facility] 009 Branch 2022-05-16 2022-05-16 Outpatient MARY TERAN [facility] [id number] Univers 09:20:00 09:20:00 MARY ELIZABETH [facility] 2022-05-16 2022-05-16 Outpatient MARY TERAN [facility] [id number] Univers 09:00:00 09:00:00 MARY ELIZABETH tricia [facility] 2022-05-10 2022-05-10 Outpatient R LUNA ROSENBAUM [facility] B [id number] Univers 00:00:00 00:00:00 LUNA ROSENBAUM tricia [facility] 2022-05-10 2022-05-10 Telephone [facility] [id number] Univers 00:00:00 00:00:[address] [facility] [id number] i ty of [place] 4.2.7.2.686 [place] JOANNE?BLEA [id number] [address] MEDICAL OFFICE BUILDING 2022-05-05 2022-05-05 Outpatient R ROSALINO [facility] [id number] Univers 09:00:00 09:00:00 GISELLE zuniga [facility] 2022-05-03 2022-05-03 Outpatient R LUNA ROSENBAUM [facility] B [id number] Univers 13:00:00 13:36:58 LUNA ROSENBAUM [facility] 2022-05-03 2022-05-03 Office Nelson [facility] [id number] Univers 13:00:00 13:36:58 Visit Luna RODRIGUES 350.1.13.10 telly clarke of [facility] 4.2.7.2.686 [facility] [id number] [address] 2022-04-28 2022-04-28 [facility] [id number] [facility] 10:00:00 10:46:22 DNAYELLE grimaldo [facility] 2022-04-28 2022-04-28 Office [facility] [id number] Univers 10:00:00 10:30:00 Visit Danyelle Ramon [facility] [id number] latonia Garcia 4.2.7.2.686 [place] JOANNE?BLEA [phone] Al elpidio WILKINSON [address] [place] [address] MEDICAL OFFICE BUILDING Results This patient has no known results.
[2022-08-23] MEDS ORDERED: NA CHLORIDE 0.9% 2,000 ML ONE (14:57)
[2022-08-23 15:32] LABS: Absolute Lymphocytes (CBC) 0.4 K/uL (0.7-4.9); Lymphocytes % 1.9 % (15.3-44.8); MCV 83.1 fL (80-100); RBC Red Blood Cell Count 3.97 M/uL (3.86-4.86)
[2022-08-23 15:35] LABS: Protime INR 1.02
[2022-08-23 15:45] LABS: Arterial Blood Carboxyhemoglob 1.4 % (0-1.5); Blood O2 Saturation 95.8 % (92-98.5)
[2022-08-23 15:59] LABS: ALT/SGPT 18 U/L (13-56); AST/SGOT 7 U/L (15-37); Albumin 2.4 g/dL (3.4-5.0); Alkaline Phosphatase 186 U/L (45-117); BUN Blood Urea Nitrogen 71 mg/dL (7-18); Bicarbonate 13 mmol/L (21-32); Bilirubin Direct 0.3 mg/dL (0-0.2); Bilirubin Total 0.8 mg/dL (0.2-1.0); Glomerular Filtration Rate 16 ml/min (=/>90); Glucose Level 738 mg/dL (74-106); Lipase 23 U/L (73-393); Magnesium 2.1 mg/dL (1.6-2.4); NT PRO-BNP 2279 pg/mL (<125); Potassium 3.7 mmol/L (3.5-5.1); Protein, Total 7.2 g/dL (6.4-8.2); Sodium Level 120 mmol/L (136-145); Troponin High Sensitivity 95.4 pg/mL (<58.9)
--- NOTE | 2022-08-23 16:13 | RAD REPORT ---
[facility]49 pm CLINICAL HISTORY: COUGH COMPARISON: Chest Single View dated 03/29/2022; CHEST SINGLE VIEW dated 08/18/2014; CHEST SINGLE VIEW dated 01/22/2014; CHEST SINGLE VIEW dated 07/06/2010 TECHNIQUE: Portable AP view of the chest. FINDINGS: Left basal peripheral hazy airspace opacity. No pneumothorax or effusion. The cardiomedias tinal contours are unremarkable. IMPRESSION: Left basal peripheral hazy airspace opacity, concerning for early pneumonia.
[2022-08-23 16:15] LABS: SARS-COV-2 RT PCR NEGATIVE (NEGATIVE)
[2022-08-23] MEDS ORDERED: CEFTRIAXONE 1000 MG/VIAL ONE (16:24)
[2022-08-23] MEDS ORDERED: NA CHLORIDE 0.9% 50 ML ONE (16:24)
[2022-08-23] MEDS ORDERED: NA CHLORIDE 0.9% 1,000 ML ONE (16:24)
[2022-08-23] MEDS ORDERED: INSULIN -REGULAR HUMAN 100 UNIT in NA CHLORIDE 0.9% 100 ML IV SCH (16:30)
--- NOTE | 2022-08-23 16:37 | EDPHYS ---
Physician Documentation [facility] Name: Theresa Hoffmann Age: 42 yrs Sex: Female : 1980 Arrival Date: 08/23/2022 Time: 14:39 Bed 5 Private MD: ED Physician Gavino Reyes HPI: 08/23 16:27 This 42 yrs old Female presents to ER via EMS with complaints of High Blood catherine Sugar. 16:27 The patient or guardian reports generalized fatigue, heart racing, hyperglycemia, catherine weight loss. Onset: The symptoms/episode began/occurred 2 day(s) ago. Associated signs and symptoms: Pertinent positives: anorexia, decreased urine output. Current symptoms: In the emergency department the patient's symptoms are unchanged from the initial presentation, despite home interventions. The patient has experienced similar episodes in the past, multiple times. 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 - Social history:: Smoking status: Patient denies any tobacco usage or history of. Patient/guardian denies using alcohol, street drugs. ROS: 16:30 Constitutional: Negative for fever, chills, and weight loss, Eyes: Negative for injury, catherine pain, redness, and discharge, ENT: Negative for injury, pain, and discharge, Neck: Negative for injury, pain, and swelling, Abdomen/GI: Negative for abdominal pain, nausea, vomiting, diarrhea, and constipation, Back: Negative for injury and pain, : Negative for injury, bleeding, discharge, and swelling, MS/Extremity: Negative for injury and deformity, Skin: Negative for injury, rash, and discoloration, Neuro: Negative for headache, weakness, numbness, tingling, and seizure, Psych: Negative for depression, anxiety, suicide ideation, homicidal ideation, and hallucinations, Allergy/Immunology: Negative for hives, rash, and allergies, Endocrine: Negative for neck swelling, polydipsia, polyuria, polyphagia, and marked weight changes, Hematologic/Lymphatic: Negative for swollen nodes, abnormal bleeding, and unusual bruising. 16:30 Cardiovascular: Positive for chest pain, palpitations. 16:30 Respiratory: Positive for cough, with no reported sputum. 16:30 Abdomen/GI: Positive for nausea and vomiting, Negative for abdominal pain. 16:30 Back: Negative for injury or acute deformity, decreased range of motion, pain at rest, pain with movement. 16:30 Skin: Positive for pallor, Negative for diaphoresis, jaundice. Exam: 16:30 Head/Face: Normocephalic, atraumatic. Eyes: Pupils equal round and reactive to light, catherine extra-ocular motions intact. Lids and lashes normal. Conjunctiva and sclera are non-icteric and not injected. Cornea within normal limits. Periorbital areas with no swelling, redness, or edema. Back: No spinal tenderness. No costovertebral tenderness. Full range of motion. MS/ Extremity: Pulses equal, no cyanosis. Neurovascular intact. Full, normal range of motion. 16:30 Constitutional: The patient appears frail, in obvious distress, mildly distressed. 16:30 Cardiovascular: Rate: tachycardic, actual rate is 120 bpm, Rhythm: regular, Pulses: Pulses are 4+ in bilateral radial, brachial, femoral, popliteal, posterior tibial and and dorsalis pedis arteries.. Heart sounds: normal, Edema: is not appreciated, JVD: is not appreciated. 16:30 ECG was reviewed by the Attending Physician. Vital Signs: 14:46 Weight 51.26 kg; Height 5 ft. 1 in. (154.94 cm); Pain 7/10; ss 15:35 BP 106 / 65; Pulse 118; Resp 25; Temp 97.9; Pulse Ox 100% ; vg1 16:00 BP 93 / 63; Pulse 116; Resp 24; Pulse Ox 100% ; jl7 18:32 BP 110 / 78; Pulse 120; Resp 21; Pulse Ox 100% ; jl7 14:46 Body Mass Index 21.35 (51.26 kg, 154.94 cm) ss MDM: 14:40 Patient medically screened. catherine 16:33 Differential diagnosis: DKA. Data reviewed: vital signs, nurses notes, EMS record, lab catherine test result(s), EKG, radiologic studies, CT scan, plain films. Consideration of Admission/Observation Patient was admitted/placed on observation. Escalation of care including admission/observation considered. I considered the following discharge prescriptions or medication management in the emergency department Medications were administered in the Emergency Department. See MAR. Test considered but Not performed: Ultrasound US RENAL. Care significantly affected by the following chronic conditions: Diabetes, Chronic Kidney Disease, GASTROPARESIS. 08/23 14:47 Order name: Glucose jl7 08/23 14:47 Order name: Basic Metabolic Panel [facility] 08/23 14:47 Order name: CBC with Diff [facility] 08/23 14:47 Order name: LFT's [facility] 08/23 14:47 Order name: Magnesium [facility] 08/23 14:47 Order name: NT PRO-BNP [facility] 08/23 14:47 Order name: PT-INR [facility] 08/23 14:47 Order name: Troponin HS [facility] 08/23 14:47 Order name: Ketone, Serum [facility] 08/23 14:47 Order name: Lipase [facility] 08/23 14:47 Order name: ABG [facility] 08/23 14:47 Order name: COVID-19/FLU A+B [facility] 08/23 14:47 Order name: Blood Culture Adult (2) [facility] 08/23 14:47 Order name: Lactate w/ 2H reflex if indic. [facility] 08/23 14:57 Order name: Glucose, Ancillary Testing; Complete Time: 16:04 [facility] 08/23 15:35 Order name: Protime (+INR); Complete Time: 16:04 [facility] 08/23 15:45 Order name: Acetone Level; Complete Time: 16:24 [facility] 08/23 15:45 Order name: CBC with Automated Diff [facility] [place] 08/23 15:47 Order name: Lactate w/ 2H reflex if indic.; Complete Time: 16:04 [facility] 08/23 15:55 Order name: ABG Arterial Blood Gas; Complete Time: 16:04 [facility] 08/23 16:12 Order name: Basic Metabolic Panel; Complete Time: 16:24 [facility] 08/23 16:12 Order name: Liver (Hepatic) Function; Complete Time: 16:24 [facility] 08/23 16:12 Order name: Troponin High Sensitivity; Complete Time: 16:24 [facility] 08/23 16:12 Order name: NT PRO-BNP; Complete Time: 16:24 [facility] 08/23 16:12 Order name: Magnesium; Complete Time: 16:24 [facility] 08/23 16:12 Order name: Lipase; Complete Time: 16:24 [facility] 08/23 16:15 Order name: COVID-19/FLU A+B; Complete Time: 16:24 [facility] 08/23 14:47 Order name: EKG; Complete Time: 14:47 [facility] 08/23 14:47 Order name: XRAY Chest (1 view) [facility] 08/23 14:47 Order name: EKG; Complete Time: 14:48 [facility] 08/23 14:47 Order name: EKG; Complete Time: 14:48 [facility] 08/23 16:14 Order name: RAD; Complete Time: 16:24 EDMS 08/23 16:30 Order name: Stone Protocol CT em1 08/23 16:41 Order name: Manual Differential [facility] 08/23 18:04 Order name: Glucose [facility] 08/23 18:14 Order name: Glucose, Ancillary Testing [facility] 08/23 18:43 Order name: Glucose Level [facility] 08/23 20:12 Order name: Acetone Level [facility] 08/23 20:13 Order name: Lipid Profile [facility] 08/23 20:13 Order name: T4 Free [facility] 08/23 20:13 Order name: Thyroid Stimulating Hormone [facility] 08/23 20:23 Order name: LDL, Direct [facility] 08/23 20:41 Order name: Glucose kd3 08/23 20:53 Order name: Basic Metabolic Panel [facility] 08/23 21:13 Order name: CT EDGA 08/23 21:14 Order name: Glucose Level [facility] 08/23 14:47 Order name: Cardiac monitoring; Complete Time: 15:18 [facility] 08/23 14:47 Order name: EKG - Nurse/Tech; Complete Time: 15:52 [facility] 08/23 14:47 Order name: IV Saline Lock; Complete Time: 15:34 [facility] 08/23 14:47 Order name: Labs collected and sent; Complete Time: 15:34 [facility] 08/23 14:47 Order name: O2 Per Protocol; Complete Time: 15:18 [facility] 08/23 14:47 Order name: O2 Sat Monitoring; Complete Time: 15:18 [facility] 08/23 14:47 Order name: EKG - Nurse/Tech; Complete Time: 15:50 [facility] 08/23 16:04 Order name: IV - Large Bore; Complete Time: 16:08 [facility] EC:30 Rate is 116 beats/min. Rhythm is regular. QRS [place] is Normal. NE interval is normal. catherine QRS interval is normal. QT interval is normal. No Q waves. T waves are Normal. No ST changes noted. Clinical impression: Sinus tachycardia. Interpreted by me. Reviewed by me. Administered Medications: 15:34 Drug: NS 0.9% 1000 ml Route: IV; Rate: 1 bolus; Site: right upper arm; vg1 17:00 Follow up: Response: No adverse reaction; IV Status: Completed infusion; IV Intake: [facility] 1000ml 15:34 Drug: NS 0.9% 1000 ml Route: IV; Rate: 125 ml/hr; Site: right upper arm; 1 18:33 Follow up: Response: No adverse reaction; IV Status: Infusion continued upon admission [facility] 16:10 Drug: NS 0.9% 1000 ml Route: IV; Rate: 1 bolus; Site: left antecubital; 7 17:30 Follow up: Response: No adverse reaction; IV Status: Completed infusion; IV Intake: [facility] 1000ml 16:15 Drug: Rocephin (cefTRIAXone) 1 grams Route: IV; Rate: per protocol; Site: left [facility] antecubital; 16:30 Follow up: Response: No adverse reaction; IV Status: Completed infusion jl7 18:20 Drug: Insulin Drip - (Insulin Regular Human 100 units, NS 0.9% 100 ml) {Co-Signature: [facility] (Cesilia Marcum RN).} Route: IV; Rate: 6 units/hr; Site: left antecubital; 18:34 Follow up: IV Status: Infusion continued upon admission jl7 18:23 Drug: Zithromax (azithromycin) 500 mg Route: IVPB; Infused Over: 1 hrs; Site: right [facility] antecubital; 21:15 Follow up: Response: No adverse reaction; IV Status: Completed infusion kd3 18:23 Drug: Pepcid (famotidine) 20 mg Route: IVP; Site: left antecubital; 7 18:34 Follow up: Response: No adverse reaction jl7 21:15 Follow up: Response: No adverse reaction kd3 20:08 Drug: Ativan (LORazepam) 1 mg Route: IVP; Site: right antecubital; kd3 21:15 Follow up: Response: No adverse reaction kd3 Disposition Summary: 08/23/22 16:37 Hospitalization Ordered Hospitalization Status: Inpatient Admission catherine Provider: Blanca Hampton cha Location: Intensive Care Unit catherine Condition: Fair catherine Problem: new catherine Symptoms: have improved catherine Bed/Room Type: Standard [facility] Room Assignment: 1-(08/23/22 19:59) cg Diagnosis - Diabetes mellitus due to underlying condition with ketoacidosis without coma catherine - Pneumonia due to other specified bacteria - LEFT LOWER LOBE catherine - Elevated white blood cell count catherine - Kidney transplant status catherine - Anemia, unspecified catherine Forms: - Medication Reconciliation Form catherine - SBAR form cathernie Signatures: Dispatcher [employer] EDMS Gavino Reyes MD MD cha Martinez, Eric em1 Winsome Wyatt RN RN ss Roberta Marcum RN RN Kiran Vasques RN RN jl7 Cesilia Marcum RN RN vg1 Elizabeth Lazar RN RN kd3 Marcela Bell PA-C PA-C sb4 Cesilia Marcum RN vg1 Corrections: (The following items were deleted from the chart) 14:48 14:47 Cardiac monitoring ordered. [place] [address] 14:48 14:47 IV Saline Lock ordered. [place] [address] 14:48 14:47 Labs collected and sent ordered. [place] [address] 14:48 14:47 Oxygen Per Protocol ordered. [place] [address] 14:48 14:47 O2 Sat Monitoring ordered. [place] [address] 14:49 14:47 EKG - Nurse/Tech ordered. [place] [address] 18:23 17:45 Urine Test ordered. em1 7 19:21 19:17 PMHx: Hypothyroidism; [place] [address] 19:59 16:37 catherine cg
--- NOTE | 2022-08-23 16:37 | ER ---
Nurse's Notes [facility] Name: Theresa Hoffmann Age: 42 yrs Sex: Female : 1980 Arrival Date: 08/23/2022 Time: 14:39 Bed 5 Private MD: Diagnosis: Diabetes mellitus due to underlying condition with ketoacidosis without coma;Pneumonia due to other specified bacteria-LEFT LOWER LOBE;Elevated white blood cell count;Kidney transplant status;Anemia, unspecified Presentation: 08/23 14:39 Chief complaint: EMS states: Mother called 911 to check on patient at home for possible ss low blood sugar. Upon EMS arrival pt is awake but drowsy and oriented x 3. EMS states that BGL was reading "high". Pt c/o CP 01/08. Coronavirus screen: Client denies travel out of the [place] in the last 14 days. Ebola Screen: Patient denies exposure to infectious person. Patient denies travel to an Ebola-affected area in the 21 days before illness onset. Initial Sepsis Screen: Does the patient have a suspected source of infection? No. Patient's initial sepsis screen is negative. Risk Assessment: Do you want to hurt yourself or someone else? Patient reports no desire to harm self or others. Onset of symptoms is unknown. 14:39 Method Of Arrival: EMS: [facility] ss 14:39 Acuity: THANG 2 ss 19:21 Initial Sepsis Screen: Does the patient meet any 2 criteria? No. Patient's initial jl7 sepsis screen is negative. 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 - Social history:: Smoking status: Patient denies any tobacco usage or history of. Patient/guardian denies using alcohol, street drugs. Screenin:35 [facility] ED Fall Risk Assessment (Adult) History of falling in the last 3 months, vg1 including since admission No falls in past 3 months (0 pts) Confusion or Disorientation Yes (5 pts) Intoxicated or Sedated No (0 pts) Impaired Gait Yes (1 pt) Mobility Assist Device Used No (0 pt) Altered Elimination No (0 pt) Score/Fall Risk Level 3 or more points = High Risk Oriented to surroundings, Maintained a safe environment. Abuse screen: Denies threats or abuse. Denies injuries from another. Nutritional screening: No deficits noted. Tuberculosis screening: No symptoms or risk factors identified. Assessment: 14:45 General: Appears in no apparent distress. uncomfortable, Behavior is calm, cooperative, jl7 quiet. Pain: Denies pain. Neuro: Level of Consciousness is awake, alert, confused, Oriented to person, place. Cardiovascular: Patient's skin is warm and dry. Rhythm is sinus tachycardia. Respiratory: Airway is patent Respiratory effort is even, unlabored, Respiratory pattern is symmetrical, tachypnea. GI: Reports diarrhea, nausea, vomiting, resolved x 2 days. Derm: Skin is pink, warm \\T\\ dry. 15:30 Reassessment: Pt restless, asking for water and food, informed of DKA policy, pt jl7 verbalized understanding. 17:30 Reassessment: Right upper arm IV noted to be infiltrated, free flowing but swelling, IV jl7 dc'd , pressure dressing applied. 18:20 Reassessment: US guided IV inserted to right AC, flushes easily, no swelling noted, pt jl7 denies discomfort. Vital Signs: 14:46 Weight 51.26 kg; Height 5 ft. 1 in. (154.94 cm); Pain 7/10; ss 15:35 BP 106 / 65; Pulse 118; Resp 25; Temp 97.9; Pulse Ox 100% ; vg1 16:00 BP 93 / 63; Pulse 116; Resp 24; Pulse Ox 100% ; jl7 18:32 BP 110 / 78; Pulse 120; Resp 21; Pulse Ox 100% ; jl7 14:46 Body Mass Index 21.35 (51.26 kg, 154.94 cm) ED Course: 14:39 Patient arrived in ED. 14:40 Gavino Reyes MD is Attending Physician. [facility] 14:44 Triage completed. 14:44 Arm band placed on right wrist. 14:45 Kiran Hollingsworth, KARLY is Primary Nurse. jl7 15:00 Missed attempt(s): 24 gauge in right hand. Bleeding controlled, band aid applied, jl7 catheter tip intact. 15:15 First set of blood cultures drawn by me. vg1 15:20 Initial lab(s) drawn, by me, sent to lab. Inserted saline lock: 20 gauge in right upper vg1 arm, using aseptic technique. ,using aseptic technique. Inserted via US guided Blood collected. 15:35 Patient has correct armband on for positive identification. Placed in gown. Bed in low vg1 position. Call light in reach. Side rails up X2. Client placed on continuous cardiac and pulse oximetry monitoring. NIBP monitoring applied. Warm blanket given. 15:35 COVID swab sent to lab. vg1 16:00 Missed attempt(s): 24 gauge in right hand. Bleeding controlled, band aid applied, jl7 catheter tip intact. 16:30 Inserted saline lock: 20 gauge in left antecubital area, using aseptic technique. jl7 ,using aseptic technique. US guided insertion. 16:35 Blanca Hampton MD is Hospitalizing Provider. [facility] 17:00 Second set of blood cultures drawn by me. jl7 18:00 Missed attempt(s): 24 gauge in left wrist. Bleeding controlled, band aid applied, jl7 catheter tip intact. 18:20 Inserted saline lock: 20 gauge in right antecubital area, using aseptic technique. jl7 ,using aseptic technique. US guided by KARLY Schumacher. 18:37 Glucose Sent. jl7 19:22 No provider procedures requiring assistance completed. Patient admitted, IV remains in jl7 place. intact, No redness/swelling at site. 21:15 Glucose Sent. kd3 Administered Medications: 15:34 Drug: NS 0.9% 1000 ml Route: IV; Rate: 1 bolus; Site: right upper arm; vg1 17:00 Follow up: Response: No adverse reaction; IV Status: Completed infusion; IV Intake: jl7 1000ml 15:34 Drug: NS 0.9% 1000 ml Route: IV; Rate: 125 ml/hr; Site: right upper arm; vg1 18:33 Follow up: Response: No adverse reaction; IV Status: Infusion continued upon admission jl7 16:10 Drug: NS 0.9% 1000 ml Route: IV; Rate: 1 bolus; Site: left antecubital; jl7 17:30 Follow up: Response: No adverse reaction; IV Status: Completed infusion; IV Intake: jl7 1000ml 16:15 Drug: Rocephin (cefTRIAXone) 1 grams Route: IV; Rate: per protocol; Site: left jl7 antecubital; 16:30 Follow up: Response: No adverse reaction; IV Status: Completed infusion jl7 18:20 Drug: Insulin Drip - (Insulin Regular Human 100 units, NS 0.9% 100 ml) {Co-Signature: 7 vg1 (Cesilia Marcum RN).} Route: IV; Rate: 6 units/hr; Site: left antecubital; 18:34 Follow up: IV Status: Infusion continued upon admission jl7 18:23 Drug: Zithromax (azithromycin) 500 mg Route: IVPB; Infused Over: 1 hrs; Site: right jl7 antecubital; 21:15 Follow up: Response: No adverse reaction; IV Status: Completed infusion kd3 18:23 Drug: Pepcid (famotidine) 20 mg Route: IVP; Site: left antecubital; jl7 18:34 Follow up: Response: No adverse reaction jl7 21:15 Follow up: Response: No adverse reaction kd3 20:08 Drug: Ativan (LORazepam) 1 mg Route: IVP; Site: right antecubital; kd3 21:15 Follow up: Response: No adverse reaction kd3 Medication: 15:35 VIS not applicable for this client. vg1 Intake: 17:00 IV: 1000ml; Total: 1000ml. jl7 17:30 IV: 1000ml; Total: 2000ml. jl7 Outcome: 16:37 Decision to Hospitalize by Provider. [facility] 21:15 Admitted to ICU room 1. kd3 21:15 Condition: stable 21:15 Discharge instructions given to patient, Instructed on the need for admit, Demonstrated understanding of instructions, follow-up care. 21:16 Patient left the ED. kd3 Signatures: Gavino Reyes MD MD cha Smirch, Shelby RN Kiran Arcos RN RN jl7 Garcia, Victoria, RN RN vg1 Elizabeth Lazar RN RN kd3 Cesilia Marcum RN vg1 Corrections: (The following items were deleted from the chart) 19:21 19:17 PMHx: Hypothyroidism; 7 jl7
[2022-08-23 16:41] LABS: Blood Morphology Comment NOT SEEN (NOT SEEN); Platelet Estimate DECR; Toxic Granulation 2+
[2022-08-23] MEDS ORDERED: AZITHROMYCIN 500 MG INJ IVPB ONE (16:45)
[2022-08-23] MEDS ORDERED: NA CHLORIDE 0.9% 250 ML ONE (16:45)
[2022-08-23] MEDS ORDERED: FAMOTIDINE 20 MG/2 ML VIAL IV ONE (16:45)
[2022-08-23] MEDS ORDERED: ACETAMINOPHEN 650MG/RECT SUPP PR PRN (17:40)
--- NOTE | 2022-08-23 17:43 | P.HP ---
Certification for Inpatient Patient admitted to: Inpatient With expected LOS: >2 Midnights Patient will require the following post-hospital care: None Practitioner: I am a practitioner with admitting privileges, knowledge of patient current condition, hospital course, and medical plan of care. Services: Services provided to patient in accordance with Admission requirements found in Title 42 Section 412.3 of the Code of Federal Regulations Patient History Date of Service: 08/23/22 Reason for admission: DKA. History of Present Illness: Patient is a 42-year-old female with a past medical history significant for DM 2, gastroparesis, kidney transplant who presents with complaint of generalized weakness and fatigue that has been ongoing for the past 1/2 weeks. Patient reported associated signs and symptoms of shortness of breath with exertion, polydipsia, nausea, vomiting, diarrhea, cough and abdominal discomfort. Patient denies any other signs and symptoms. Symptoms are aggravated or relieved by nothing. Patient decided to present to the hospital due to worsening symptoms. Of note, patient reported that diarrhea has resolved and patient reported that she has been compliant with her home medications. Patient noted with intermittent confusion. Allergies meperidine HCl [From Demerol] Allergy (Intermediate, Verified 01/21/14 23:42) Hives sulfamethoxazole [From Bactrim] Allergy (Intermediate, Verified 01/21/14 23:42) Hives trimethoprim [From Bactrim] Allergy (Intermediate, Verified 01/21/14 23:42) Hives hydrocodone Adverse Reaction (Verified 01/21/14 23:42) Nausea/Vomiting metoclopramide [From Reglan] Adverse Reaction (Verified 03/30/22 09:49) tardive Home Medications: Insulin Aspart [Novolog*] See Protocol SQ AC 01/21/14 Insulin Glargine Human [Lantus*] 20 units SQ DAILY 01/21/14 Acetam/Caff/Butal [Fioricet*] 1 tab PO Q12H PRN #30 tab 01/23/14 Atorvastatin Calcium 10 mg PO DAILY 03/30/22 Carisoprodol [Soma] 700 mg PO BID PRN 03/30/22 Cetirizine HCl [Zyrtec] 10 mg PO DAILY PRN 03/30/22 Gabapentin 100 mg PO BID 03/30/22 Levothyroxine [Synthroid*] 125 mcg PO [id number] 03/30/22 Mirtazapine [Remeron] 15 mg PO BEDTIME PRN 03/30/22 Mycophenolate Sodium [Mycophenolic Acid] 360 mg PO BID 03/30/22 Nitrofurantoin Monohyd/M-Cryst [Nitrofurantoin [place]-Mcr 100 mg] 100 mg PO BID 03/30/22 Pantoprazole Sodium [Protonix] 40 mg PO DAILY 03/30/22 Prednisone [Wili] 5 mg PO DAILY 03/30/22 Sumatriptan [Imitrex*] 50 mg PO BID PRN 03/30/22 Tacrolimus 1 mg PO BEDTIME 03/30/22 Tacrolimus 2 mg PO BREAKFAST 03/30/22 levETIRAcetam [Keppra*] 500 mg PO BID 03/30/22 Amox/Clavulanate [Augmentin 875-125 Tab] 875 mg PO BID 5 Days #10 tab 04/08/22 Ondansetron [Zofran] 4 mg PO Q8H PRN 7 Days #20 tab 04/08/22 - Past Medical/Surgical History Diabetic: Yes -: DMII insulin dependent -: HTN -: Hypothyroidism -: Renal transplant 2018 -: Renal transplant 2018-[facility] Psychosocial/ Personal History: Lives at home, alone. Unemployed. - Family History Mother -: Diabetes - Social History Smoking Status: Unknown if ever smoked Alcohol use: No CD- Drugs: No Caffeine use: No Place of Residence: Home Review of Systems General: Weakness, Other (Fatigue, polydipsia) Eyes: Unremarkable ENT: Unremarkable Respiratory: Cough, Shortness of Breath, SOB with Excertion Cardiovascular: Unremarkable Gastrointestinal: Nausea, Vomiting, Abdominal Pain, Diarrhea Genitourinary: Unremarkable Musculoskeletal: Unremarkable Integumentary: Unremarkable Neurological: Unremarkable Lymphatics: Unremarkable Physical Examination - Physical Exam General: Alert, In no apparent distress, Oriented x3, Cooperative HEENT: Atraumatic, PERRLA, Mucous membr. moist/pink, EOMI, Sclerae nonicteric Neck: Supple, 2+ carotid pulse no bruit, No LAD, Without JVD or thyroid abnormality Respiratory: Clear to auscultation bilaterally, Normal air movement Cardiovascular: No edema, Regular rate/rhythm, Normal S1 S2 Capillary refill: <2 Seconds Gastrointestinal: Normal bowel sounds, Soft and benign, Non-distended, No tenderness Musculoskeletal: No clubbing, No swelling, No tenderness Integumentary: No rashes, No breakdown, No significant lesion Neurological: Normal speech, Normal tone, Normal affect Lymphatics: No axilla or inguinal lymphadenopathy - Studies Laboratory Data (last 24 hrs) 08/23/22 15:15: PT 11.2, INR 1.02 08/23/22 15:15: WBC 21.30 H*, Hgb 10.0 L, Hct 33.0 L, Plt Count 118 L 08/23/22 15:15: Sodium 120 L, Potassium 3.7, BUN 71 H, Creatinine 3.53 H, Glucose 738 H*, Magnesium 2.1, Total Bilirubin 0.8, AST 7 L, ALT 18, Alkaline Phosphatase 186 H, Lipase 23 L Assessment and Plan - Plan --DKA. Patient started on insulin drip. Continue DKA protocol. Patient will be admitted to ICU. Continue supportive care. --Elevated troponin. Cardiology consulted. We will continue to trend troponin levels. --High anion gap metabolic acidosis. Secondary to DKA. Continue current treatment regimen. --Pneumonia. Noted on imaging. Patient placed on antibiotics, neb treatment with albuterol\Atrovent and O2 therapy as needed. --Gastroparesis. Continue home medications when appropriate. -- Hyponatremia. Sodium currently at 120. We will continue to trend BMP. Hyponatremia likely secondary to acute hyperglycemia. Nephrology consulted. Will await further recommendations. --History of kidney transplant. Load Checker on board. Continue home medications when appropriate. Further management per graduate research assistant. --Leukocytosis. Likely secondary to pneumonia. Blood cultures pending. Continue antibiotics. --Sepsis POA. Blood cultures pending. Continue antibiotics. --Anemia of chronic disease. H&H stable. We will continue monitor hemoglobin and transfuse if less than 7.0. --Hypothyroidism. Continue home medication when appropriate. --Hyperlipidemia. Continue statin when appropriate. --Diarrhea. Resolved. Continue supportive care. --Acute encephalopathy. Likely secondary to DKA. Intermittent confusion noted. Continue supportive care. --History of migraine headache. Continue home medication when appropriate --DVT prophylaxis with Lovenox subQ. Discharge Plan: Home Plan to discharge in: Greater than 2 days - Advance Directives Does patient have a Living Will: No Does patient have a Durable POA for Healthcare: No - Code Status/Comfort Care Code Status Assessed: Yes Physician Review: Patient Assessed, Agree with Above Assessment and Plan Critical Care: No
[2022-08-23] MEDS ORDERED: NACHLORIDE 0.45% 1,000 ML IV SCH (18:00)
[2022-08-23] MEDS ORDERED: ENOXAPARIN 30 MG/0.3 ML SQ SCH (18:00)
[2022-08-23] MEDS ORDERED: SODIUM CHLORIDE 0.9% 10ML INJ IV PRN (18:20)
--- NOTE | 2022-08-23 19:26 | P.PN ---
Brief Renal note (full consult to follow by NLA team) Pt known to me from hospitalization last fall, does not see me in the OP setting. Pt with more serious FELA on this admission in the setting of (recurrent) DKA, volume depletion, infection, other. Corrected Na 130 or higher. Pt's bicarb deficit is > 200 mmol/L. There is AG metab acidosis and concurrent metab alkalosis from hypovolemia and/or GI losses. pH > 7.2 but will switch ordered 1/2 NS IVF to 1/2 NS with sodium bicarb 75 meq for the initial 1-1.5L and then switch to NS IVF while BG > 250. Will request roberts for strict I/Os and will send off catherized urine for UA. Hold or lower tacrolimus dose in the setting of FELA until level can be checked or signs of prompt renal recovery with hydration. DKA management per hospitalist team. Joselito Lassiter MD, BRANDON
[2022-08-23] MEDS: ONDANSETRON 4 MG/2 ML VIAL IV PRN (19:45)
[2022-08-23] MEDS: ALBUTEROL 2.5 MG/3 ML NEB SOL NEB SCH (20:00)
[2022-08-23] MEDS: IPRATROPIUM BROM 0.5MG/2.5ML NEB SCH (20:00)
[2022-08-23] MEDS: CEFTRIAXONE 1,000 MG in NA CHLORIDE 0.9% 50 ML IVPB SCH (20:00)
[2022-08-23 20:08] LABS: HDL Cholesterol 9 mg/dL (40-60); Thyroid Stimulating Hormone 0.032 uIU/mL (0.358-3.740)
[2022-08-23] MEDS ORDERED: LORazepam 2 MG/ML VIAL ONE (20:08)
[2022-08-23] MEDS ORDERED: ONDANSETRON 4 MG/2 ML VIAL ONE (20:08)
[2022-08-23 20:23] LABS: LDL, Direct 37 mg/dL (100-129)
[2022-08-23 20:50] LABS: BUN Blood Urea Nitrogen 71 mg/dL (7-18); Bicarbonate 10 mmol/L (21-32); Glomerular Filtration Rate 19 ml/min (=/>90); Glucose Level 682 mg/dL (74-106); Potassium 3.8 mmol/L (3.5-5.1); Sodium Level 126 mmol/L (136-145)
--- NOTE | 2022-08-23 21:13 | RAD REPORT ---
EXAM DESCRIPTION: CT - Stone Protocol - 08/23/2022 8:36 pm CLINICAL HISTORY: Nausea, vomiting. COMPARISON: 03/21/2022. TECHNIQUE: Axial CT imaging of the abdomen and pelvis was performed without IV contrast. Multiplanar reformats were generated and reviewed. All CT scans are performed using dose optimization technique as appropriate and may include automated exposure control or mA/KV adjustment according to patient size. FINDINGS: No suspicious findings in the lung bases. The liver, spleen and pancreas show no suspicious findings. Gallbladder and biliary tree are also wit hout suspicious finding. No hydronephrosis or suspicious renal mass within limits of noncontrast evaluation. Atrophic changes of the [place] kidneys. Left pelvic renal transplant is present, and demonstrates interval enlargement compared to the prior exam, with mild perinephric fat stranding. No significant dilation of the transplanted kidney's pato ecting system. . No hyperdense hematoma. No significant adrenal finding. No dilated bowel loops or bowel wall thickening. No free air, free fluid or inflammatory stranding. N o hernia, mass or bulky lymphadenopathy. The urinary bladder is without significant finding. No suspicious bony findings. IMPRESSION: Enlarged left pelvic renal transplant with perinephric fat stranding, new findings since the prior CT. No evidence of hydroureteronephrosis or obstructing calculus. Evaluation is limited on noncontrast CT, and the findings could relate to vascular causes such as ischemia or venous thrombos is, versus pyelonephritis. No other acute intra-abdominal process. The findings were communicated to Gavino Page on 08/23/2022 at 21:07 hours.
[2022-08-23] MEDS ORDERED: NACHLORIDE 0.45% 1,000 ML IV ONE (22:05)
[2022-08-23] MEDS ORDERED: SODIUM BICARB 50 MEQ/50ML VIAL ONE (22:05)
[2022-08-23] MEDS: PANTOPRAZOLE 40 MG INJ IVP SCH (22:13)
[2022-08-23] MEDS: NACHLORIDE 0.45% 1,000 ML with NA BICARB 8.4% 75 MEQ IV SCH ×2 (22:14)
[2022-08-23 23:21] LABS: Barbiturates NEGATIVE (NEGATIVE); Benzodiazepines NEGATIVE (NEGATIVE); Cocaine NEGATIVE (NEGATIVE); METHAMPHETAM NEGATIVE (NEGATIVE); Methadone NEGATIVE (NEGATIVE); Opiates NEGATIVE (NEGATIVE); Phencyclidine NEGATIVE (NEGATIVE); THC Cannibis POSITIVE (NEGATIVE)
[2022-08-23 23:35] LABS: Specific Gravity 1.012 (1.005-1.030); Urine Bacteria <20 /HPF (<20); Urine Bilirubin NEGATIVE (Negative); Urine Blood Trace (Negative); Urine Clarity Clear (Clear); Urine Color Light-Yellow (Yellow); Urine Glucose 4+ (Over) (Negative); Urine Mucus Slight /HPF (None Seen); Urine Protein TRACE (Negative); Urine RBC <5 /HPF (None Seen); Urine Urobilinogen Normal (Normal)
[2022-08-23 23:38] LABS: BUN Blood Urea Nitrogen 68 mg/dL (7-18); Bicarbonate 19 mmol/L (21-32); Glomerular Filtration Rate 20 ml/min (=/>90); Potassium 3.2 mmol/L (3.5-5.1); Sodium Level 130 mmol/L (136-145)
[2022-08-23 23:40] LABS: Glucose Level 450 mg/dL (74-106)
[2022-08-23 23:41] LABS: Troponin High Sensitivity 433.1 pg/mL (<58.9)
[2022-08-24] MEDS ORDERED: LORazepam 2 MG/ML VIAL IV PRN (00:17)
[2022-08-24] MEDS: IPRATROPIUM BROM 0.5MG/2.5ML NEB SCH ×3 (00:20→08:00)
[2022-08-24] MEDS: ALBUTEROL 2.5 MG/3 ML NEB SOL NEB SCH ×2 (00:20→08:00)
[2022-08-24] MEDS: MORPHINE 4 MG/ML SYR IV PRN ×2 (00:52→09:27)
[2022-08-24] MEDS ORDERED: HEPARIN/D5W 25,000 UNIT/500 ML BAG IV SCH ×2 (01:00→18:00)
[2022-08-24] MEDS: KCL 20 MEQ/100 mL IVPB 20 MEQ/100 ML BAG IV SCH ×2 (02:00→04:15)
[2022-08-24 02:03] LABS: BUN Blood Urea Nitrogen 68 mg/dL (7-18); Bicarbonate 22 mmol/L (21-32); Glomerular Filtration Rate 21 ml/min (=/>90); Glucose Level 226 mg/dL (74-106); Sodium Level 133 mmol/L (136-145)
[2022-08-24 02:11] LABS: Potassium 2.7 mmol/L (3.5-5.1)
[2022-08-24 05:40] LABS: Absolute Lymphocytes (CBC) 0.3 K/uL (0.7-4.9); Hematocrit 27.6 % (36.0-45.0); Lymphocytes % 1.7 % (15.3-44.8); MCV 78.3 fL (80-100); MPV 10.4 fL (7.6-11.3); RBC Red Blood Cell Count 3.52 M/uL (3.86-4.86)
[2022-08-24] MEDS ORDERED: NACHLORIDE 0.45% 1,000 ML IV ONE (05:52)
[2022-08-24] MEDS: NACHLORIDE 0.45% 1,000 ML with NA BICARB 8.4% 75 MEQ IV SCH ×2 (05:54)
[2022-08-24 06:01] LABS: Phosphorus 2.7 mg/dL (2.5-4.9)
[2022-08-24 06:04] LABS: Troponin High Sensitivity 696.7 pg/mL (<58.9)
[2022-08-24 06:14] LABS: BUN Blood Urea Nitrogen 64 mg/dL (7-18); Bicarbonate 27 mmol/L (21-32); Glomerular Filtration Rate 23 ml/min (=/>90); Glucose Level 185 mg/dL (74-106); Potassium 4.5 mmol/L (3.5-5.1); Sodium Level 138 mmol/L (136-145)
[2022-08-24 06:44] LABS: Blood Morphology Comment NOT SEEN (NOT SEEN); Platelet Estimate DECR; White Blood Cell Scan OK (OK)
[2022-08-24 07:39] VITALS: BMI 22.4
[2022-08-24] MEDS: CEFTRIAXONE 1,000 MG in NA CHLORIDE 0.9% 50 ML IVPB SCH (08:52)
[2022-08-24] MEDS: AZITHROMYCIN IV 500 MG in NA CHLORIDE 0.9% 250 ML IVPB SCH (08:52)
[2022-08-24] MEDS: PANTOPRAZOLE 40 MG INJ IVP SCH (08:53)
[2022-08-24] MEDS ORDERED: CEFTRIAXONE 1,000 MG in NA CHLORIDE 0.9% 50 ML IVPB SCH (09:00)
[2022-08-24] MEDS: ONDANSETRON 4 MG/2 ML VIAL IV PRN (09:27)
[2022-08-24] MEDS ORDERED: METOPROLOL TARTRATE 5 MG/5 ML INJ IV PRN (10:03)
[2022-08-24] MEDS ORDERED: METOPROLOL TARTRATE 5 MG/5 ML INJ IV STA (10:03)
[2022-08-24] MEDS: D5 0.45 NS 1,000 ML IV SCH ×4 (10:13→18:25)
--- NOTE | 2022-08-24 10:16 | P.PN ---
Subjective Date of Service: 08/24/22 Subjective: Patient is a 42-year-old female who is well-known to me from multiple prior admissions in the past with diabetic ketoacidosis. Patient required renal transplant about 5 years ago and since then she has been on immunosuppressants. Renal transplant was done at a hospital in [facility]. Patient was here in March for diabetic ketoacidosis. She once again comes in with similar complaints. However, she is also in acute renal failure. Patient will be monitored closely in ICU. We will go ahead and start a diet and give long- acting insulin. Can stop the insulin drip in 1 hour. Patient also with elevated troponins most likely related to demand ischemia. No ahead and get cardiology consultation. Platelet count has decreased on a heparin drip. Hold heparin and reassess. Will discuss with cardiology. Review of Systems 10-point ROS is otherwise unremarkable Physical Examination - Vital Signs Temperature: 98.3 F Blood Pressure: 94/67 Pulse: 104 Respirations: 18 Pulse Ox (%): 100 - Physical Exam General: Alert, In no apparent distress, Oriented x3 HEENT: Atraumatic, PERRLA, EOMI Neck: Supple, JVD not distended Respiratory: Clear to auscultation bilaterally, Normal air movement Cardiovascular: Regular rate/rhythm, Normal S1 S2 Gastrointestinal: Normal bowel sounds, No tenderness Musculoskeletal: No tenderness Integumentary: No rashes Neurological: Normal speech, Normal tone, Normal affect Lymphatics: No axilla or inguinal lymphadenopathy - Studies Laboratory Data (last 24 hrs) 08/23/22 15:15: PT 11.2, INR 1.02 08/23/22 15:15: WBC 21.30 H*, Hgb 10.0 L, Hct 33.0 L, Plt Count 118 L 08/23/22 15:15: Sodium 120 L, Potassium 3.7, BUN 71 H, Creatinine 3.53 H, Glucose 738 H*, Magnesium 2.1, Total Bilirubin 0.8, AST 7 L, ALT 18, Alkaline Phosphatase 186 H, Lipase 23 L Microbiology Data (last 24 hrs): 08/23/22 15:15 Blood - Blood Blood Culture Gram Stain - Final 08/23/22 15:15 Blood - Blood Gram Stain - Final Medications List Reviewed: Yes Assessment & Plan - Problems (Diagnosis) (1) DKA (diabetic ketoacidosis) Current Visit: Yes Status: Acute (2) History of renal transplant Current Visit: Yes Status: Acute (3) Demand ischemia of myocardium Current Visit: Yes Status: Acute (4) Uncontrolled hypertension Current Visit: Yes Status: Acute (5) Acute renal failure (ARF) Current Visit: No Status: Acute (6) Hyperkalemia Current Visit: No Status: Acute - Plan 1. Continue with insulin drip 2. Continue with IV hydration 3. Monitor hemoglobin A1c 4. Blood sugars every hour 5. Check BMP every 4 hours 6. Curtain Fitter regarding blood sugars 7. Repeat acetone level in a.m. 8. Cardiology consultation 9. Go ahead and check immunosuppressant levels 10. GI DVT prophylaxis Discharge Plan: Home Plan to discharge in: Greater than 2 days - Advance Directives Does patient have a Living Will: No Does patient have a Durable POA for Healthcare: No - Code Status/Comfort Care Code Status Assessed: Yes Code Status: Full Code Physician Review: Patient Assessed, Agree with Above Assessment and Plan Critical Care: No Time Spent Managing PTS Care (In Minutes): 35
[2022-08-24] MEDS ORDERED: ALBUTEROL 2.5 MG/3 ML NEB SOL NEB PRN (10:28)
[2022-08-24] MEDS ORDERED: IPRATROPIUM BROM 0.5MG/2.5ML NEB PRN (10:28)
--- NOTE | 2022-08-24 10:32 | P.CNS ---
Date of Consult: 08/24/22 Reason for Consult: Hyponatremia Requesting Physician: Blanca Hampton Chief Complaint: DKA. History of Present Illness: Patient is a 42-year-old female with a past medical history significant for DM 2, gastroparesis, kidney transplant who presents with complaint of generalized weakness and fatigue that has been ongoing for the past 1/2 weeks. Patient reported associated signs and symptoms of shortness of breath with exertion, polydipsia, nausea, vomiting, diarrhea, cough and abdominal discomfort. Patient denies any other signs and symptoms. Symptoms are aggravated or relieved by nothing. Patient decided to present to the hospital due to worsening symptoms. Of note, patient reported that diarrhea has resolved and patient reported that she has been compliant with her home medications. Patient noted with intermittent confusion. 16:27 This 42 yrs old Female presents to ER via EMS with complaints of High Blood catherine Sugar. 16:27 The patient or guardian reports generalized fatigue, heart racing, hyperglycemia, catherine weight loss. Onset: The symptoms/episode began/occurred 2 day(s) ago. Associated signs and symptoms: Pertinent positives: anorexia, decreased urine output. Current symptoms: In the emergency department the patient's symptoms are unchanged from the initial presentation, despite home interventions. The patient has experienced similar episodes in the past, multiple times. Allergies meperidine HCl [From Demerol] Allergy (Intermediate, Verified 01/21/14 23:42) Hives sulfamethoxazole [From Bactrim] Allergy (Intermediate, Verified 01/21/14 23:42) Hives trimethoprim [From Bactrim] Allergy (Intermediate, Verified 01/21/14 23:42) Hives hydrocodone Adverse Reaction (Verified 01/21/14 23:42) Nausea/Vomiting metoclopramide [From Reglan] Adverse Reaction (Verified 03/30/22 09:49) tardive Home medications list reviewed: Yes Home Medications: Insulin Aspart [Novolog*] See Protocol SQ AC 01/21/14 Insulin Glargine Human [Lantus*] 20 units SQ DAILY 01/21/14 Atorvastatin Calcium 10 mg PO DAILY 03/30/22 Cetirizine HCl [Zyrtec] 10 mg PO DAILY PRN 03/30/22 Gabapentin 100 mg PO BID 03/30/22 Levothyroxine [Synthroid*] 125 mcg PO [id number] 03/30/22 Pantoprazole Sodium [Protonix] 40 mg PO DAILY 03/30/22 Tacrolimus 1 mg PO BEDTIME 03/30/22 Tacrolimus 2 mg PO BREAKFAST 03/30/22 levETIRAcetam [Keppra*] 500 mg PO BID 03/30/22 Cholecalciferol (Vitamin D3) [D3-5000] 125 mcg PO DAILY 08/24/22 Methenamine Hippurate 1 gm PO BID 08/24/22 Mycophenolate Sodium [Myfortic] 360 mg PO BID 08/24/22 Norgestimate-Ethinyl Estradiol [Estarylla 0.25-0.035 mg Tablet] 1 each PO DAILY 08/24/22 Polymyxin B Sulf/Trimethoprim [Polymyxin B-Tmp Eye Drops] 10 ml OP QID PRN predniSONE [Prednisone] 1 tab PO DAILY 08/24/22 - Past Medical/Surgical History Diabetic: Yes -: IDDM II -: HTN -: Hypothyroidism -: Renal transplant 2018 -: FELA (Dr. Lassiter/ Dr. Triana) -: Renal transplant 2018-[facility] Psychosocial/ Personal History: Lives at home, alone. Unemployed. - Family History Mother Medical History: Diabetes - Social History Smoking Status: Unknown if ever smoked Alcohol use: No CD- Drugs: No Caffeine use: No Place of Residence: Home Review of Systems 10-point ROS is otherwise unremarkable General: Weakness, Malaise Gastrointestinal: Nausea Physical Examination Temp Pulse Resp BP Pulse Ox 98.3 F 104 H 18 94/67 100 08/24/22 10:16 08/24/22 10:16 08/24/22 10:16 08/24/22 10:16 08/24/22 10:16 General: Oriented x3, Cooperative HEENT: Atraumatic Neck: Supple Respiratory: Normal air movement Cardiovascular: No edema, Regular rate/rhythm Gastrointestinal: Soft and benign, Non-distended Musculoskeletal: No clubbing, No contractures Integumentary: No rashes, No cyanosis Neurological: Normal speech Laboratory Data (last 24 hrs) 08/23/22 15:15: PT 11.2, INR 1.02 08/23/22 15:15: WBC 21.30 H*, Hgb 10.0 L, Hct 33.0 L, Plt Count 118 L 02/22/23 15:15: Sodium 120 L, Potassium 3.7, BUN 71 H, Creatinine 3.53 H, Glucose 738 H*, Magnesium 2.1, Total Bilirubin 0.8, AST 7 L, ALT 18, Alkaline Phosphatase 186 H, Lipase 23 L Imagings Data: EXAM DESCRIPTION: [place] Single View08/23/2022 3:49 pm CLINICAL HISTORY: COUGH COMPARISON: Chest Single View dated 03/29/2022; CHEST SINGLE VIEW dated 08/18/2014; CHEST SINGLE VIEW dated 01/22/2014; CHEST SINGLE VIEW dated 07/06/2010 TECHNIQUE: Portable AP view of the chest. FINDINGS: Left basal peripheral hazy airspace opacity. No pneumothorax or effusion. The cardiomediastinal contours are unremarkable. IMPRESSION: Left basal peripheral hazy airspace opacity, concerning for early pneumonia. EXAM DESCRIPTION: CT - Stone Protocol - 08/23/2022 8:36 pm CLINICAL HISTORY: Nausea, vomiting. COMPARISON: 03/21/2022. TECHNIQUE: Axial CT imaging of the abdomen and pelvis was performed without IV contrast. Multiplanar reformats were generated and reviewed. All CT scans are performed using dose optimization technique as appropriate and may include automated exposure control or mA/KV adjustment according to patient size. FINDINGS: No suspicious findings in the lung bases. The liver, spleen and pancreas show no suspicious findings. Gallbladder and biliary tree are also without suspicious finding. No hydronephrosis or suspicious renal mass within limits of noncontrast evaluation. Atrophic changes of the [place] kidneys. Left pelvic renal transplant is present, and demonstrates interval enlargement compared to the prior exam, with mild perinephric fat stranding. No significant dilation of the transplanted kidney's collecting system. . No hyperdense hematoma. No significant adrenal finding. No dilated bowel loops or bowel wall thickening. No free air, free fluid or inflammatory stranding. No hernia, mass or bulky lymphadenopathy. The urinary bladder is without significant finding. No suspicious bony findings. IMPRESSION: Enlarged left pelvic renal transplant with perinephric fat stranding, new findings since the prior CT. No evidence of hydroureteronephrosis or obstructing calculus. Evalua tion is limited on noncontrast CT, and the findings could relate to vascular causes such as ischemia or venous thrombosis, versus pyelonephritis. No other acute intra-abdominal process. Conclusions/Impression: Stage III FELA likely due to hypovolemia and may be complicated by ATN CKD I with Proteinuria Renal transplant status 2018 -No NSAIDs -Continue Tacrolimus and Prednisone (Consider stress dose prednisone but may worsen hyperglycemia) -Prograf level pending -Continue IVF -Send repeat urine studies today Hyponatremia, resolved Hypokalemia, resolved -Replete prn AG Acidosis, resolved -Continue DM support with insulin HTN with CKD complicated by hypotension Tachycardia -Metoprolol as tolerated DM II with hyperglycemia & CKD DKA -Continue insulin gtt Hypoalbuminemia -Advance nutrition as indicated Anemia in chronic illness Microcytosis Thrombocytopenia -Monitor CBC -Consider iron status Thank you kindly for the consultation Greater than 30min patient care.
[2022-08-24] MEDS ORDERED: DRISDOL (VITAMIN D=ERGOCALCIFEROL) 50000 UNIT CAP PO SCH (12:00)
--- NOTE | 2022-08-24 15:10 | CON ---
Date of Consultation: 08/24/2022 Reason For Consultation: Elevated troponin. History Of Present Illness: A 42-year-old female with history of type 1 diabetes since she was 10 yea rs old, gastroparesis, history of end-stage renal disease, status post kidney transplant. Her creati nine was normal back in March last year. She comes in with generalized weakness and fatigue, shannon rtness of breath on exertion, nausea, vomiting, and polydipsia. She is having also chest pain in the left upper chest that radiates to the neck periodically. Past Medical History: As outlined above in HPI. Medications: Refer to reconciliation sheet for detailed list. Allergies: LONG LIST OF ALLERGIES WAS REVIEWED. PLEASE REFER TO NURSE'S NOTE. Family History: No premature coronary artery disease or cancer. Social History: Does not drink, use any drugs. Unknown if she smokes. Review of Systems: All systems reviewed and they were negative except what mentioned in HPI. Physical Examination: Vital Signs: Reviewed. Head and Neck: Pupils are equal, reactive to light. Intact eye movements. No JVD. No cervical lym phadenopathy. Neck is supple. Thyroid is not enlarged. Lungs: Clear to auscultation bilaterally. No rhonchi, wheezing, or crackles. No accessory muscle u se. Heart: Regular rate and rhythm. No extra sounds. Abdomen: Soft, nontender. Bowel sounds positive. No organomegaly. No masses or hernia. No rigidi ty or rebound. Extremities: No edema, clubbing, or cyanosis. Intact pulses. Skin: No rash. Neurologic: Alert, awake, oriented x3. No acute focal deficits appreciated. Investigations: BUN 64, creatinine 2.57. Troponin 697 and NT-proBNP is in the 2000 range. Assessment And Recommendations: 1.Elevated troponin with chest pain suggestive of non-ST elevation myocardial infarction. Continue IV heparin drip. We will wait on her kidney function and diabetic ketoacidosis to resolve and once h er condition is stable, then we will plan for coronary angiogram. If her kidney function does not im prove very well, then we will plan for stress test as a first step. Meanwhile, continue heparin and aspirin as well as high-dose statin. 2.Acute renal failure due to diabetic ketoacidosis and dehydration, improving nicely. Be careful wi th the fluid management as she has congestive heart failure apparently. 3.Elevated NT-proBNP, which could be because she has an acute renal failure; however, we will obtain echocardiogram and she needs ischemia evaluation as outlined above. SR/MODL Voice ID: [id number] Report ID: [id number]
[2022-08-24 15:23] LABS: Urine Bacteria None Seen /HPF (<20); Urine Crystals Unidentified Few /HPF (None Seen); Urine RBC <5 /HPF (None Seen)
[2022-08-24 15:24] LABS: Specific Gravity 1.015 (1.005-1.030); Urine Bilirubin Negative (Negative); Urine Clarity Clear (Clear); Urine Color Yellow (Yellow); Urine Glucose Negative (Negative)
[2022-08-24 15:26] LABS: Urine Blood Negative (Negative); Urine Protein Trace (Negative); Urine Urobilinogen 0.2 (Normal)
[2022-08-24 15:39] LABS: UR MICROALBUMIN 3.5 mg/dL (< 1.9); Urine Protein/Creatinine Ratio 0.87 ratio (<0.15)
--- NOTE | 2022-08-24 16:31 | EKG ---
Test Date: 2022-08-23 Test Time: 15:46:43 Sales Consulting Director: TIMMY MEASUREMENT RESULTS: Intervals: Rate: 116 NV: 128 QRSD: 78 QT: 352 QTc: 489 Dameron: P: 64 NV: 128 QRS: 22 T: 23 INTERPRETIVE STATEMENTS: Sinus tachycardia Septal infarct, age undetermined Abnormal ECG Compared to ECG 03/29/2022 20:14:01 Myocardial infarct finding now present Sinus rhythm no longer present T-wave abnormality no longer present Electronically Signed On 08-24-22 16:29:17 CRUTCH MAKER by Chris Camargo
[2022-08-24] MEDS: METOPROLOL TAR 25 MG TAB PO SCH (17:55)
[2022-08-24 19:09] LABS: Potassium 3.6 mmol/L (3.5-5.1)
[2022-08-24] MEDS: DOCUSATE NA 100 MG CAP PO SCH (20:49)
[2022-08-24] MEDS: levETIRAcetam 500 MG TAB PO SCH (20:49)
[2022-08-25] MEDS ORDERED: KCL 20 MEQ/100 mL IVPB 20 MEQ/100 ML BAG IV SCH ×2 (01:00→03:00)
[2022-08-25 01:07] LABS: Potassium 2.8 mmol/L (3.5-5.1)
[2022-08-25] MEDS: METOPROLOL TAR 25 MG TAB PO SCH ×2 (04:45→17:28)
[2022-08-25] MEDS: LEVOTHYROXINE SOD 0.125 MG TAB PO SCH (04:46)
[2022-08-25] MEDS: D5 0.45 NS 1,000 ML IV SCH ×2 (04:46→12:00)
[2022-08-25 05:49] LABS: Magnesium 1.7 mg/dL (1.6-2.4); Potassium 3.1 mmol/L (3.5-5.1)
[2022-08-25 05:50] LABS: Troponin High Sensitivity 361.7 pg/mL (<58.9)
[2022-08-25 05:51] LABS: Absolute Lymphocytes (CBC) 2.4 K/uL (0.7-4.9); Hematocrit 25.2 % (36.0-45.0); Lymphocytes % 22.1 % (15.3-44.8); MCV 78.3 fL (80-100); MPV 10.8 fL (7.6-11.3); RBC Red Blood Cell Count 3.22 M/uL (3.86-4.86)
--- NOTE | 2022-08-25 07:53 | RAD REPORT ---
[facility] 5[facility] CLINICAL HISTORY: pneumonia COMPARISON: Chest Single View dated 08/23/2022; Chest Single View dated 03/29/2022; CHEST SINGLE VIEW dated 08/18/2014; CHEST SINGLE VIEW dated 01/22/2014 TECHNIQUE: Portable AP view of the chest. FINDINGS: The lungs are clear.Hazy left basilar opacities less conspicuous today. No pneumothorax or effusion. The cardiomediastinal contours are unremarkable. IMPRESSION: No acute cardiopulmonary process.
[2022-08-25] MEDS: levETIRAcetam 500 MG TAB PO SCH ×3 (09:00→19:39)
[2022-08-25] MEDS ORDERED: PREDNISONE 5 MG PO SCH (09:00)
[2022-08-25] MEDS: DOCUSATE NA 100 MG CAP PO SCH ×3 (09:00→19:39)
--- NOTE | 2022-08-25 09:01 | ECHO ---
HEIGHT: 5 ft 1 in WEIGHT: 119 lb 0.794 oz DATE OF STUDY: 08/24/[address]: Blanca Hampton MD 2-DIMENSIONAL: YES M.MODE: YES DOPPLER: YES COLOR FLOW: YES TDS: PORTABLE: YES DEFINITY: BUBBLE STUDY: DIAGNOSIS: ELEVATED TROPONIN CARDIAC HISTORY: CATHERIZATION: NO SURGERY: NO PROSTHETIC VALVE: NO PACEMAKER: NO MEASUREMENTS (cm) DIASTOLIC (NORMALS) SYSTOLIC (NORMALS) IVSd 0.9 (0.6-1.2) LA Diam 2.3 (1.9-4.0) LVEF 68% LVIDd 3.6 (3.5-5.7) LVIDs 2.2 (2.0-3.5) %FS 37% LVPWd 0.9 (0.6-1.2) Ao Diam 2.3 (2.0-3.7) 2 DIMENSIONAL ASSESSMENT: RIGHT ATRIUM: NORMAL LEFT ATRIUM: NORMAL RIGHT VENTRICLE: NORMAL LEFT VENTRICLE: NORMAL TRICUSPID VALVE: MILD TRICUSPID REGURGITATION MITRAL VALVE: MILD MITRAL REGURGITATION PULMONIC VALVE: NORMAL AORTIC VALVE: NORMAL PERICARDIAL EFFUSION: NONE AORTIC ROOT: NORMAL LEFT VENTRICULAR WALL MOTION: NORMAL DOPPLER/COLOR FLOW: SEE BELOW COMMENTS: 1. NORMAL LEFT VENTRICULAR EJECTION FRACTION 60-65% 2. NORMAL WALL MOTION 3. MILD MITRAL REGURGITATION 4. MILD TRICUSPID REGURGITATION TECHNOLOGIST: NAVEEN KAUFMAN
[2022-08-25] MEDS: CEFTRIAXONE 1,000 MG in NA CHLORIDE 0.9% 50 ML IVPB SCH (09:35)
[2022-08-25] MEDS: AZITHROMYCIN IV 500 MG in NA CHLORIDE 0.9% 250 ML IVPB SCH (09:35)
[2022-08-25] MEDS: PANTOPRAZOLE 40 MG INJ IVP SCH (09:36)
[2022-08-25] MEDS: ONDANSETRON 4 MG/2 ML VIAL IV PRN (10:35)
[2022-08-25] MEDS ORDERED: POTASSIUM PHOS 20 MM in NA CHLORIDE 0.9% 500 ML IV ONE (11:41)
[2022-08-25] MEDS ORDERED: MAGNESIUM SULFATE 1 gm IVPB 1 GM/100 ML BAG IV ONE (11:41)
--- NOTE | 2022-08-25 11:50 | P.PN ---
Nephrology note: (S) Pt seen curled up in bed, has been nauseated, refusing to eat, on IVF, heparin gtt and insulin gtt. No CP or dyspnea reported (O) Vitals reviewed in the EMR General: NAD HEENT: Atraumatic, sclera anicteric, off O2 Neck: Supple Respiratory: Normal air movement Cardiovascular: No edema, Regular rate/rhythm Gastrointestinal: Soft and benign, Non-distended Musculoskeletal: No clubbing, No contractures Integumentary: No rashes, No cyanosis Neurological: Normal speech, awake, alert Laboratory Data (last 24 hrs) Reviewed in the EMR Conclusions/Impression: FELA due to pre-renal state, hypovolemia, other -resolving Renal transplant status 2018 -Decrease IVF and d/c when able to take in PO intake -Cont home IS doses, will f/u on prograf level -Replete lytes Hypokalemia, hypophosphatemia In the setting of intracellular shifting with Insulin, total body depletion with anorexia, GI losses, other Ordered Mg sulfate, KPhos, KCL given earlier, recheck lytes 2h post repletion Hyponatremia 2nd to hyperglycemia, hypovolemia Resolved AG Acidosis, resolved NSTEMI -Echo noted, no signs of any sig elevation in filling pressures as FELA is resolving, risk for IKER from any LHC once stable should be lower now Gram neg bacteremia, no septic shock f/u cultures, Abx per primary team
--- NOTE | 2022-08-25 13:23 | EKG ---
Test Date: 2022-08-24 Test Time: 09:38:49 Building Operator: MG MEASUREMENT RESULTS: Intervals: Rate: 105 IA: 132 QRSD: 74 QT: 366 QTc: 483 [place]: P: 52 IA: 132 QRS: 5 T: 41 INTERPRETIVE STATEMENTS: Sinus tachycardia Low voltage QRS Borderline ECG Compared to ECG 08/23/2022 15:46:43 Low QRS voltage now present Myocardial infarct finding no longer present Electronically Signed On 08-25-22 13:19:11 TIMBER MANAGEMENT PROFESSOR by Chris Camargo
--- NOTE | 2022-08-25 13:23 | EKG ---
Test Date: 2022-08-24 Test Time: 09:41:33 Sanding Machine Operator: MG MEASUREMENT RESULTS: Intervals: Rate: 104 ND: 132 QRSD: 76 QT: 372 QTc: 489 [place]: P: 58 ND: 132 QRS: 9 T: 52 INTERPRETIVE STATEMENTS: Sinus tachycardia Low voltage QRS Borderline ECG Compared to ECG 08/23/2022 15:46:43 Low QRS voltage now present Myocardial infarct finding no longer present Electronically Signed On 08-25-22 13:19:08 KNURLING MACHINE OPERATOR by Chris Camargo
--- NOTE | 2022-08-25 13:23 | EKG ---
Test Date: 2022-08-24 Test Time: 09:40:00 Ed Manager: MG MEASUREMENT RESULTS: Intervals: Rate: 106 NC: 130 QRSD: 74 QT: 374 QTc: 496 [place]: P: 60 NC: 130 QRS: 7 T: 43 INTERPRETIVE STATEMENTS: Sinus tachycardia Low voltage QRS Borderline ECG Compared to ECG 08/24/2022 09:38:49 No significant changes Electronically Signed On 08-25-22 13:19:09 STACKING MACHINE OPERATOR by Chris Camargo
[2022-08-25] MEDS: MORPHINE 4 MG/ML SYR IV PRN ×2 (14:02→21:30)
[2022-08-25 14:29] LABS: Potassium 2.9 mmol/L (3.5-5.1)
--- NOTE | 2022-08-25 16:20 | PN ---
Date of Progress Note: 08/25/2022 Subjective: Seen by bedside. She is chest pain free. Her kidney function is normalized today. Review of Systems: No chest pain at the present time. No shortness of breath, orthopnea, cough, nausea, vomiting, diarr hea. All other systems reviewed and they were negative. Physical Examination: Vital Signs: Reviewed. Head and Neck: Pupils are equal, reactive to light. Intact eye movements. No JVD. No cervical lym phadenopathy. Neck is supple. Thyroid is not enlarged. Lungs: Clear to auscultation bilaterally. No rhonchi, wheezing, or crackles. No accessory muscle u se. Heart: Regular rate and rhythm. No extra sounds. Abdomen: Soft, nontender. Bowel sounds positive. No organomegaly. No masses or hernia. No rigidi ty or rebound. Extremities: No edema, clubbing, or cyanosis. Intact pulses. Skin: No rash. Neurologic: Alert, awake, oriented x3. No acute focal deficits appreciated. Investigations: BUN is 24, creatinine 1.09, potassium 2.9. Assessment And Recommendations: 1.Non-ST elevation myocardial infarction. Troponin is elevated, which could still be demand ischemi a, but she has type 1 diabetes since she was 10 years old. She has a significant risk factor. She ca n be switched to Lovenox 1 mg/kg subcu q.12 hours, continue baby aspirin, and plan for coronary angio gram on Sunday. 2.Diabetic ketoacidosis, resolved. 3.Acute renal failure due to severe dehydration. This is resolved. Her kidney function normalized today. SR/MODL Voice ID: [id number] Report ID: [id number]
[2022-08-25] MEDS ORDERED: INSULIN GLARGINE 100 UNIT/ML SQ ONE (17:00)
[2022-08-25] MEDS ORDERED: GLUCAGON 1 MG/VIAL IM PRN (18:04)
[2022-08-25] MEDS ORDERED: D50W 25 GM/50 ML SYRINGE IV PRN (18:04)
[2022-08-25 19:18] LABS: Potassium 3.2 mmol/L (3.5-5.1)
[2022-08-25] MEDS: ENOXAPARIN 60 MG/0.6 ML SQ SCH (19:39)
[2022-08-25 21:47] LABS: Potassium 3.2 mmol/L (3.5-5.1)
[2022-08-25] MEDS: KCL 20 MEQ/100 mL IVPB 20 MEQ/100 ML BAG IV SCH (23:15)
[2022-08-25] MEDS: INSULIN -REGULAR HUMAN 50 UNIT/0.5 ML ML SQ SCH (23:15)
[2022-08-26] MEDS: KCL 20 MEQ/100 mL IVPB 20 MEQ/100 ML BAG IV SCH (01:28)
[2022-08-26] MEDS: D5 0.45 NS 1,000 ML IV SCH (01:30)
[2022-08-26 04:53] LABS: Absolute Lymphocytes (CBC) 1.5 K/uL (0.7-4.9); Hematocrit 25.8 % (36.0-45.0); Lymphocytes % 22.9 % (15.3-44.8); MCV 78.5 fL (80-100); MPV 9.9 fL (7.6-11.3); RBC Red Blood Cell Count 3.28 M/uL (3.86-4.86)
[2022-08-26 05:10] LABS: Magnesium 1.8 mg/dL (1.6-2.4); Phosphorus 1.7 mg/dL (2.5-4.9)
[2022-08-26] MEDS: LEVOTHYROXINE SOD 0.125 MG TAB PO SCH (06:04)
[2022-08-26] MEDS: METOPROLOL TAR 25 MG TAB PO SCH ×2 (06:04→16:49)
[2022-08-26] MEDS: MORPHINE 4 MG/ML SYR IV PRN ×2 (06:04→21:20)
[2022-08-26 07:00] LABS: Potassium 2.9 mmol/L (3.5-5.1)
[2022-08-26] MEDS: INSULIN -REGULAR HUMAN 50 UNIT/0.5 ML ML SQ SCH ×4 (07:30→21:19)
[2022-08-26] MEDS ORDERED: POTASSIUM CL 40 MEQ in NA CHLORIDE 0.9% 500 ML IV ONE (08:00)
[2022-08-26] MEDS: AZITHROMYCIN IV 500 MG in NA CHLORIDE 0.9% 250 ML IVPB SCH (08:02)
[2022-08-26] MEDS: CEFTRIAXONE 1,000 MG in NA CHLORIDE 0.9% 50 ML IVPB SCH (08:02)
[2022-08-26] MEDS: ENOXAPARIN 60 MG/0.6 ML SQ SCH ×2 (08:03→21:00)
[2022-08-26] MEDS: PANTOPRAZOLE 40 MG INJ IVP SCH (08:03)
[2022-08-26] MEDS: levETIRAcetam 500 MG TAB PO SCH ×2 (08:04→21:01)
[2022-08-26] MEDS: DOCUSATE NA 100 MG CAP PO SCH ×2 (08:04→21:01)
[2022-08-26] MEDS ORDERED: ALBUTEROL 2.5 MG/3 ML NEB SOL NEB PRN (10:00)
[2022-08-26] MEDS ORDERED: IPRATROPIUM BROM 0.5MG/2.5ML NEB PRN (10:00)
[2022-08-26] MEDS ORDERED: POTASSIUM PHOS 30 MM in NA CHLORIDE 0.9% 500 ML IV ONE (13:00)
--- NOTE | 2022-08-26 14:26 | P.PN ---
Date of Service: 08/25/22 Subjective A long discussion with patient. She is having a lot of pain on swallowing her food. She is having pain not able to tolerate her food that well. Renal function has improved significantly. Blood pressure is controlled. Troponins are trending downward. Appreciate nephrology and cardiology assistance in patient's care. Review of Systems 10-point ROS is otherwise unremarkable Physical Examination - Vital Signs Reviewed - Physical Exam General: Alert, In no apparent distress, Oriented x3 Respiratory: Clear to auscultation bilaterally, Normal air movement Cardiovascular: Regular rate/rhythm, Normal S1 S2 Gastrointestinal: Normal bowel sounds, No tenderness Musculoskeletal: No tenderness Neurological: Normal speech, Normal tone, Normal affect Assessment & Plan - Problems (Diagnosis) (1) DKA (diabetic ketoacidosis) Current Visit: Yes Status: Acute (2) History of renal transplant Current Visit: Yes Status: Acute (3) Demand ischemia of myocardium Current Visit: Yes Status: Acute (4) Uncontrolled hypertension Current Visit: Yes Status: Acute (5) Acute renal failure (ARF) Current Visit: No Status: Acute (6) Hyperkalemia Current Visit: No Status: Acute - Plan Continue with plan of care as mentioned below 1. Continue her long-acting insulin 2. Hep-Lock IV when she is eating a little bit more calories daily 3. Monitor hemoglobin A1c 4. Blood sugars q4h 5. Check BMP every 4 hours 6. Continue with immunosuppressants 7. Acetone level is negative 8. Cardiology consultation appreciated; possible cardiac catheterization on Sunday 9. Continue with immunosuppressants 10. GI and DVT prophylaxis
--- NOTE | 2022-08-26 14:31 | P.PN ---
Date of Service: 08/26/22 Subjective Patient renal function is improved. Patient is trying to eat a little bit more today. Blood sugars are stable. Cardiac status is stable as well. Awaiting for cardiology evaluation for possible cardiac catheterization on Sunday. Patient would prefer to do this as an outpatient; however, she is has some chest discomfort and her troponins are significantly elevated. We will wait for cardiology input. Continue with strict blood sugar control Review of Systems 10-point ROS is otherwise unremarkable Physical Examination - Vital Signs Reviewed - Physical Exam General: Alert, In no apparent distress, Oriented x3 Respiratory: Clear to auscultation bilaterally, Normal air movement Cardiovascular: Regular rate/rhythm, Normal S1 S2 Gastrointestinal: Soft/nondistended/nontender normal bowel sounds, No tenderness Musculoskeletal: No clubbing/no cyanosis/no edema Neurological: No focal deficits Assessment & Plan - Problems (Diagnosis) (1) DKA (diabetic ketoacidosis) Current Visit: Yes Status: Acute (2) History of renal transplant Current Visit: Yes Status: Acute (3) Demand ischemia of myocardium Current Visit: Yes Status: Acute (4) Uncontrolled hypertension Current Visit: Yes Status: Acute (5) Acute renal failure (ARF) Current Visit: No Status: Acute (6) Hyperkalemia Current Visit: No Status: Acute - Plan Continue with plan of care as mentioned below 1. Continue her long-acting insulin 2. Hep-Lock IV; advance diet 3. Monitor hemoglobin A1c 4. Blood sugars q4h 5. Check BMP daily 6. Continue with immunosuppressants 7. Acetone level is negative 8. Cardiology consultation appreciated; possible cardiac catheterization on Sunday 9. Renal function is stable 10. Continue with strict blood pressure control 11. Electrolytes are stable 12. GI and DVT prophylaxis
--- NOTE | 2022-08-26 15:18 | P.PN ---
Nephrology note: (S) Off insulin gtt, remains on IVF, getting IV Kphos, still not eating much, reports some dysphagia, relates it to recent retching, N/V (O) Vitals reviewed in the EMR General: NAD HEENT: Atraumatic, sclera anicteric, off O2 Neck: Supple Respiratory: Normal air movement Cardiovascular: No edema, Regular rate/rhythm Gastrointestinal: Soft and benign, Non-distended Musculoskeletal: No clubbing, No contractures Integumentary: No rashes, No cyanosis Neurological: Normal speech, awake, alert Laboratory Data (last 24 hrs) Reviewed in the EMR Conclusions/Impression: FELA due to pre-renal state, hypovolemia, other -resolved Renal transplant status 2018 -Encourage PO intake, d/c IVF -Cont home IS doses, will f/u on prograf level -Replete lytes -d/c roberts Hypokalemia, hypophosphatemia In the setting of intracellular shifting with Insulin, total body depletion with anorexia, GI losses, other Complete K-Phos infusion, will order additional KCL liquid Hyponatremia 2nd to hyperglycemia, hypovolemia Resolved AG Acidosis, resolved NSTEMI -Echo noted, no signs of any sig elevation in filling pressures as FELA is resolving, risk for IKER from any LHC once stable should be low now Gram neg/Ecoli bacteremia, no septic shock Complete Abx course for salas sensitive Ecoli, if pt maintaining oral intake, can switch to PO Abx for pt to complete course
[2022-08-26] MEDS ORDERED: POTASSIUM 25 MEQ EFFERV TAB PO ONE (15:43)
[2022-08-26] MEDS: SUCRALFATE 1GM/10ML UCUP FT SCH ×2 (16:16→16:43)
[2022-08-26 17:39] LABS: Potassium 5.4 mmol/L (3.5-5.1)
[2022-08-26] MEDS ORDERED: TACROLIMUS 1 MG PO SCH (21:00)
[2022-08-27] MEDS: LORazepam 2 MG/ML VIAL IV PRN ×2 (01:32→08:28)
[2022-08-27] MEDS: MORPHINE 4 MG/ML SYR IV PRN (04:18)
[2022-08-27] MEDS: LEVOTHYROXINE SOD 0.125 MG TAB PO SCH (06:52)
[2022-08-27] MEDS: METOPROLOL TAR 25 MG TAB PO SCH ×2 (06:53→16:48)
[2022-08-27 07:33] LABS: Absolute Lymphocytes (CBC) 0.9 K/uL (0.7-4.9); Hematocrit 25.4 % (36.0-45.0); Lymphocytes % 17.5 % (15.3-44.8); MCV 78.4 fL (80-100); MPV 9.6 fL (7.6-11.3); RBC Red Blood Cell Count 3.24 M/uL (3.86-4.86)
[2022-08-27] MEDS ORDERED: CEFTRIAXONE 1000 MG/VIAL ONE (07:44)
[2022-08-27] MEDS: levETIRAcetam 500 MG TAB PO SCH (07:49)
[2022-08-27] MEDS: SUCRALFATE 1GM/10ML UCUP FT SCH ×3 (07:49→16:49)
[2022-08-27] MEDS: CEFTRIAXONE 1,000 MG in NA CHLORIDE 0.9% 50 ML IVPB SCH (07:49)
[2022-08-27] MEDS: DOCUSATE NA 100 MG CAP PO SCH (07:49)
[2022-08-27] MEDS: ENOXAPARIN 60 MG/0.6 ML SQ SCH (07:51)
[2022-08-27] MEDS: PANTOPRAZOLE 40 MG INJ IVP SCH (07:51)
[2022-08-27] MEDS: AZITHROMYCIN IV 500 MG in NA CHLORIDE 0.9% 250 ML IVPB SCH (07:56)
[2022-08-27] MEDS ORDERED: TACROLIMUS 1 MG PO SCH (08:00)
[2022-08-27 08:01] LABS: ALT/SGPT < 10 U/L (13-56); AST/SGOT 8 U/L (15-37); Alkaline Phosphatase 87 U/L (45-117); BUN Blood Urea Nitrogen 11 mg/dL (7-18); Bicarbonate 24 mmol/L (21-32); Bilirubin Total 0.5 mg/dL (0.2-1.0); Glomerular Filtration Rate 96 ml/min (=/>90); Glucose Level 171 mg/dL (74-106); NT PRO-BNP 1417 pg/mL (<125); Potassium 3.8 mmol/L (3.5-5.1); Protein, Total 5.5 g/dL (6.4-8.2); Sodium Level 137 mmol/L (136-145); Troponin High Sensitivity 153.1 pg/mL (<58.9)
[2022-08-27 08:02] LABS: Magnesium 1.3 mg/dL (1.6-2.4)
[2022-08-27] MEDS: INSULIN -REGULAR HUMAN 50 UNIT/0.5 ML ML SQ SCH ×3 (08:27→16:30)
[2022-08-27 08:52] VITALS: O2SAT 100
[2022-08-27] MEDS ORDERED: MAGNESIUM 50% 3 GM in NA CHLORIDE 0.9% 100 ML IV ONE (09:00)
[2022-08-27] MEDS ORDERED: D10W 250 ML BAG IV PRN (12:20)
--- NOTE | 2022-08-27 15:58 | P.DS ---
Discharge Date: 08/27/22 Disposition: ROUTINE DISCHARGE Discharge Condition: GOOD Reason for Admission: DKA. Consultations: Cardiology Nephrology Transplant team - Problems (1) DKA (diabetic ketoacidosis) Current Visit: Yes Status: Acute (2) History of renal transplant Current Visit: Yes Status: Acute (3) Demand ischemia of myocardium Current Visit: Yes Status: Acute (4) Uncontrolled hypertension Current Visit: Yes Status: Acute (5) Acute renal failure (ARF) Current Visit: No Status: Acute (6) Hyperkalemia Current Visit: No Status: Acute Brief History of Present Illness: Patient is a 42-year-old female with a past medical history significant for DM 2, gastroparesis, kidney transplant who presents with complaint of generalized weakness and fatigue that has been ongoing for the past 1/2 weeks. Patient reported associated signs and symptoms of shortness of breath with exertion, polydipsia, nausea, vomiting, diarrhea, cough and abdominal discomfort. Patient denies any other signs and symptoms. Symptoms are aggravated or relieved by nothing. Patient decided to present to the hospital due to worsening symptoms. Of note, patient reported that diarrhea has resolved and patient reported that she has been compliant with her home medications. Patient noted with intermittent confusion. Hospital Course: Patient is diabetic ketoacidosis was corrected. Patient was aggressively hydrated and urine output increased. Patient renal function also corrected. Patient's troponins were also elevated so patient was given anticoagulation. Because of thrombocytopenia cardiology changed it to Lovenox subcu. Patient's clinical symptoms slowly improved. She was having a hard time eating because she would have some pain in the back of her throat. There was no obvious thrush noted. She does have odynophagia. She will need to continue her immunosuppressants and pain medication. We will go ahead and start her on Diflucan and nystatin as esophageal candidiasis is a risk for odynophagia. Once we get this arranged she should be stable for discharge home. At this time, patient is told to follow-up with cardiology in the morning. She is also advised to follow-up with her transplant team over the next 1 to 2 weeks. She is also trying to get a pancreatic transplant so is still to be very important for her to continue with her follow-ups. At this time, patient is stable for discharge home. Vital Signs/Physical Exam: Temp Pulse Resp BP Pulse Ox 96.5 F L 89 18 105/67 100 08/27/22 12:00 08/27/22 13:00 08/27/22 04:00 08/27/22 13:00 08/27/22 12:00 General: Alert, In no apparent distress, Oriented x3 Laboratory Data at Discharge: WBC 5.00 K/uL (4.3-10.9) 08/27/22 07:21 Hgb 8.2 g/dL (12.0-15.0) L 08/27/22 07:21 Hct 25.4 % (36.0-45.0) L 08/27/22 07:21 Plt Count 98 K/uL (152-406) L* D 08/27/22 07:21 PT 11.2 SECONDS (9.5-12.5) 08/23/22 15:15 INR 1.02 08/23/22 15:15 APTT 19.5 SECONDS (24.3-36.9) L 08/25/22 13:32 Sodium 137 mmol/L (136-145) 08/27/22 07:21 Potassium 3.8 mmol/L (3.5-5.1) D 08/27/22 07:21 BUN 11 mg/dL (7-18) 08/27/22 07:21 Creatinine 0.79 mg/dL (0.55-1.02) 08/27/22 07:21 Glucose 171 mg/dL (74-106) H 08/27/22 07:21 Phosphorus 1.7 mg/dL (2.5-4.9) L 08/26/22 04:30 Magnesium 1.3 mg/dL (1.6-2.4) L* 08/27/22 07:21 Total Bilirubin 0.5 mg/dL (0.2-1.0) 08/27/22 07:21 AST 8 U/L (15-37) L 08/27/22 07:21 ALT < 10 U/L (13-56) L 08/27/22 07:21 Alkaline Phosphatase 87 U/L (45-117) 08/27/22 07:21 Triglycerides 613 mg/dL (<150) H 08/23/22 19:23 Cholesterol 129 mg/dL (<200) 08/23/22 19:23 LDL Cholesterol Direct 37 mg/dL (100-129) L 08/23/22 19:23 HDL Cholesterol 9 mg/dL (40-60) L 08/23/22 19:23 Cholesterol/HDL Ratio 14.33 08/23/22 19:23 Lipase 23 U/L (73-393) L 08/23/22 15:15 Home Medications: Insulin Aspart [Novolog*] See Protocol SQ AC 01/21/14 Insulin Glargine Human [Lantus*] 20 units SQ DAILY 01/21/14 Atorvastatin Calcium 10 mg PO DAILY 03/30/22 Cetirizine HCl [Zyrtec] 10 mg PO DAILY PRN 03/30/22 Gabapentin 100 mg PO BID 03/30/22 Levothyroxine [Synthroid*] 125 mcg PO DCOAR3HG 03/30/22 Pantoprazole Sodium [Protonix] 40 mg PO DAILY 03/30/22 Tacrolimus 1 mg PO BEDTIME 03/30/22 Tacrolimus 2 mg PO BREAKFAST 03/30/22 levETIRAcetam [Keppra*] 500 mg PO BID 03/30/22 Cholecalciferol (Vitamin D3) [D3-5000] 125 mcg PO DAILY 08/24/22 Methenamine Hippurate 1 gm PO BID 08/24/22 Mycophenolate Sodium [Myfortic] 360 mg PO BID 08/24/22 Norgestimate-Ethinyl Estradiol [Estarylla 0.25-0.035 mg Tablet] 1 each PO DAILY 08/24/22 Polymyxin B Sulf/Trimethoprim [Polymyxin B-Tmp Eye Drops] 10 ml OP QID PRN 08/24/22 predniSONE [Prednisone] 1 tab PO DAILY 08/24/22 Aspirin [Aspirin EC 81 MG] 162 mg PO DAILY #60 tab 08/27/22 Fluconazole [Diflucan] 200 mg PO DAILY #7 tab 08/27/22 Metoprolol Tartrate [Lopressor*] 25 mg PO BID 6AM 6PM #60 tab 08/27/22 Nystatin 5 ml PO Q8H #200 ml 08/27/22 Pantoprazole [Protonix Tab] 40 mg PO BID #60 tab 08/27/22 Saccharomyces Boulardii [Florastor] 250 mg PO DAILY #30 cap 08/27/22 Sucralfate [Carafate -Tab] 1 gm PO ACHS #120 tab 08/27/22 New Medications: Aspirin [Aspirin EC 81 MG] 162 mg PO DAILY #60 tab Sucralfate [Carafate -Tab] 1 gm PO ACHS #120 tab Fluconazole [Diflucan] 200 mg PO DAILY #7 tab Saccharomyces Boulardii [Florastor] 250 mg PO DAILY #30 cap Metoprolol Tartrate [Lopressor*] 25 mg PO BID 6AM 6PM #60 tab Nystatin 5 ml PO Q8H #200 ml Pantoprazole [Protonix Tab] 40 mg PO BID #60 tab Physician Discharge Instructions: -DC IV and DC home -Follow-up with PCP in 1 to 2 weeks -Follow-up with Cardiology in AM -Follow-up with nephrology in 1 to 2 weeks -Follow-up with transplant team in 2 to 4 weeks -Please call Dr. Hampton at [phone] if any questions regarding hospital stay -Please call nursing station at [phone] if any nursing or medication questi ons -Return to the emergency room if symptoms worsen Diet: ADA Activity: Fall precautions Followup: NONE,NONE [Primary Care Provider] - Time spent managing pt's care (in minutes): 35
[2022-08-27 16:19] VITALS: TEMP 97
[2022-08-27 17:31] VITALS: BP 133/92
[2022-08-27] MEDS ORDERED: NA CHLORIDE 0.9% 1,000 ML IV SCH (23:00)
== END 2022-08-27 17:35 | disposition home or self-care (01) | DRG 871 ==
LOC: ER 14:38 → ERHOLD 17:16 → 3RD-ICU 21:07
PROVIDERS: ADMIT Hospitalist; ATTEND Hospitalist
DX: A41.51 Sepsis due to Escherichia coli [E. coli] (principal); E11.10 Type 2 diabetes mellitus with ketoacidosis without coma; J15.9 Unspecified bacterial pneumonia; I21.A1 Myocardial infarction type 2; Z94.0 Kidney transplant status; E87.1 Hypo-osmolality and hyponatremia; N17.9 Acute kidney failure, unspecified; G93.49 Other encephalopathy; N18.9 Chronic kidney disease, unspecified; E11.22 Type 2 diabetes mellitus with diabetic chronic kidney disease; E11.43 Type 2 diabetes mellitus with diabetic autonomic (poly)neuropathy; E11.65 Type 2 diabetes mellitus with hyperglycemia; K31.84 Gastroparesis; E78.5 Hyperlipidemia, unspecified; E86.0 Dehydration; E83.39 Other disorders of phosphorus metabolism; E87.5 Hyperkalemia; E87.6 Hypokalemia; E03.9 Hypothyroidism, unspecified; E88.09 Other disorders of plasma-protein metabolism, not elsewhere classified; D69.6 Thrombocytopenia, unspecified; D63.1 Anemia in chronic kidney disease; Z56.0 Unemployment, unspecified; Z60.2 Problems related to living alone; Z88.1 Allergy status to other antibiotic agents; Z88.5 Allergy status to narcotic agent; Z79.4 Long term (current) use of insulin; Z88.8 Allergy status to other drugs, medicaments and biological substances; Z90.49 Acquired absence of other specified parts of digestive tract; Z79.52 Long term (current) use of systemic steroids; Z79.899 Other long term (current) drug therapy; Z79.890 Hormone replacement therapy; Z20.822 Contact with and (suspected) exposure to COVID-19
CPT/HCPCS: 0240U; 36415; 71045; 74176; 76377; 80048; 80053; 80061; 80076; 80197; 80307; 81001; 82010; 82043; 82435; 82570; 82805; 82947; 83036; 83605; 83690; 83735; 83880; 84100; 84132; 84145; 84156; 84300; 84439; 84443; 84484; 85025; 85610; 85730; 87040; 87077; 87086; 87088; 87186; 87205; 93005; 93306; 99285; C9113; J0456; J1644; J1650; J1815; J2405; J3475; J3480; J7030; J7040; J7050; J7613; J7644; J7799